=== PATIENT | male | born 1965 ===

== ENCOUNTER 2018-06-29 06:58 | Inpatient (IN) ==
--- NOTE | 2018-06-29 07:37 | Anesthesia Evaluation PreOp ---
Date of Encounter: 06/29/18 Time of Encounter: 07:35 - Past History Planned Operation: LEFT TSA Cardiac History: Hyperlipidemia, Other (NORMAL EF) Pulmonary History: Former smoker (QUIT 2 MONTHS AGO), COPD (MILD) ENVIRONMENTAL FIELD PROFESSIONAL History: Other (FIBROMYALGIA) Other Medical History: Other (OBESITY, BMI 32) Anesthesia History: No Prior Anesthetic Complications, Past Anesthesia Alcohol Use: none Drug use: none Medications and Allergies Albuterol Sulfate [Proair Hfa] 1 puff IH Q4H 10/01/15 [History] BuPROPion SR (12 HR) [Wellbutrin SR] 150 mg PO BID 10/01/15 [History] Citalopram Hydrobromide [Celexa] 40 mg PO DAILY 10/01/15 [History] Diclofenac Sodium [Voltaren] 75 mg PO DAILY 10/01/15 [History] Divalproex (12 HR) [Depakote (12 HR)] 500 mg PO BID 10/01/15 [History] Gabapentin [Neurontin] 600 mg PO TID 10/01/15 [History] Gemfibrozil [Lopid] 600 mg PO BID 10/01/15 [History] OxyCODONE/APAP 5/325 [Percocet 5/325 MG] 1 each PO Q4H PRN #15 tablet 10/01/15 [Rx] Sildenafil Citrate [Viagra] 100 mg PO DAILY 10/01/15 [History] Tamsulosin [Flomax] 0.4 mg PO DAILY 10/01/15 [History] Tizanidine HCl [Zanaflex] 4 mg PO DAILY 10/01/15 [History] Varenicline tartrate [Chantix Continuing Month Pack] 1 mg PO BID 10/01/15 [History] clonazePAM [Klonopin] 0.5 mg PO BID 10/01/15 [History] Ibuprofen [Motrin] 600 mg PO Q6HR PRN #20 tab 11/02/15 [Rx] Allergy/AdvReac Type Severity Reaction Status Date / Time acetaminophen [From Vicodin] AdvReac Nausea Unverified 09/19/15 08:39 hydrocodone [From Vicodin] AdvReac Nausea Unverified 09/19/15 08:39 tramadol AdvReac Nausea Unverified 09/19/15 08:39 - Meds/Allergy Pre-op Review Medications Reviewed: Yes Allergies Reviewed: Yes Beta Blockers on Current Med List: No Anesthesia Exam O2 Sat Height 1.8 m Weight 103.419 kg O2 Sat by Pulse Oximetry 94 Vital Signs Temp Pulse Resp BP Pulse Ox 97.9 F 68 18 127/87 94 06/29/18 07:17 06/29/18 07:17 06/29/18 07:17 06/29/18 07:17 06/29/18 07:17 NPO (# of Hours): 8 - HEENT Mallampati: IV Teeth: Normal Oral Opening: Greater than 3 - Cardiac Rhythm: Regular - Pulmonary Breath Sounds: bilateral Clear Respiratory Effort: Symmetrical Anesthesia Assess/Plan ASA Score: 3 Anesthetic Plan: General, Regional Nerve Block Monitoring Plan: Standard Monitors Recovery Plan: PACU
[2018-06-29] MEDS ORDERED: *HR* OxyCODONE Immed Rel 5 MG TABLET PO PRN ×3 (07:40→11:53)
[2018-06-29] MEDS ORDERED: Albuterol 2.5 MG/3 ML NEBULIZER IH ONE (07:41)
[2018-06-29] MEDS ORDERED: Ondansetron 4 MG/2 ML VIAL IVP ONE (07:41)
[2018-06-29] MEDS ORDERED: *HR* Labetalol 20 MG/4 ML SYRINGE IVP PRN (07:41)
[2018-06-29] MEDS ORDERED: Ketorolac 30 MG/ML VIAL IVP ONE (07:41)
[2018-06-29] MEDS ORDERED: *HR* Promethazine 25 MG/ML VIAL IVP PRN (07:41)
[2018-06-29] MEDS ORDERED: *HR* Meperidine 25 MG/ML SYRINGE IVP PRN (07:41)
[2018-06-29] MEDS ORDERED: Ringers Solution, Lactated 1,000 ML IVC SCH ×2 (07:45→11:53)
--- NOTE | 2018-06-29 07:53 | History & Physical Report ---
Date of Encounter: 06/29/18 Time of Encounter: 07:53 24 Hour HP Update - Instructions Instructions: If the History and Physical is less than 30 days old and was completed prior to A.M. admission and or procedure and has NOT been updated on calendar day of procedure please complete this update prior to performing procedure. - Update Patient reports changes in Medical Condition: No Changes in examination, assessment, or condition: No Changes in Medication: No Preop tests/diagnostics Reviewed: Yes Surgery Remains Indicated: Yes Consent for Planned Operative Procedure(s) Verified: Yes - Pre-Operative Checklist Preoperative Checklist Indicated: No Prophylactic Antibiotic Ordered: Yes Is VTE Prophylaxis Indicated?: Yes
[2018-06-29] MEDS ORDERED: Lidocaine -MPF 1% 5 ML AMPUL ONE (07:54)
[2018-06-29] MEDS ORDERED: *HR* FentaNYL (PF) 100 MCG/2 ML VIAL ONE (08:02)
[2018-06-29] MEDS ORDERED: *HR* Succinylcholine 200 MG/10 ML VIAL IVP ONE (08:02)
[2018-06-29] MEDS ORDERED: Ondansetron 4 MG/2 ML VIAL ONE (08:02)
[2018-06-29] MEDS ORDERED: Dexamethasone 4 MG/ML VIAL ONE (08:02)
[2018-06-29] MEDS ORDERED: Lidocaine -MPF 2% 2 ML VIAL ONE (08:02)
[2018-06-29] MEDS ORDERED: *HR* Midazolam HCl 2 MG/2 ML VIAL ONE (08:03)
[2018-06-29] MEDS ORDERED: *HR* Propofol 200 MG/20 ML VIAL IVP ONE (08:03)
[2018-06-29] MEDS ORDERED: CeFAZolin Syr 2,000MG/20 ML 2,000 MG/20 ML SYRINGE IVPB ONE (08:06)
[2018-06-29] MEDS ORDERED: ROPIVACAINE HCL/PF 0.5% 30 ML VIAL ONE (08:25)
[2018-06-29] MEDS ORDERED: Bupivacaine-MPF 0.25% 10 ML VIAL ONE (08:25)
[2018-06-29] MEDS ORDERED: Ethanol\\Acetic Acid\\Na Ace\\Ben 1,000 ML IRRIG.SOLN IR ONE (08:26)
--- NOTE | 2018-06-29 08:33 | Discharge Summary ---
Orders not resulted at time of discharge: Pending orders 06/29/18 00:01 XR shoulder complete LT [XR] Routine H/H [Hemoglobin and Hematocrit] [HEME] Routine Date of Encounter: 06/29/18 Time of Encounter: 14:20 - Discharge Diagnosis (1) Status post reverse total arthroplasty of left shoulder Priority: Primary Status: Acute Comments: Opsite dressing, leave intact until first post-operative visit. Zipline/Sterling in place, plan to remove at post-operative day #14-16. If dressing becomes >50% saturated, contact office, remove dressing and place appropriate dressing in its place. Do not allow for dressing to get wet. Shoulder Precautions x 6 weeks. Apply cold therapy wrap 3-6x/day for 20 minutes at a time. Encourage ambulation throughout the day. Use Incentive spirometer 10x/hour. Elevate affected extremity above heart as tolerated. NWB to affected upper extremity x 6 weeks. Will remove brace at first post-operative appointment. OK to remove during PT/OT and Home exercises. Remove pillow to brace on post-operative day #1. (2) Rotator cuff arthropathy of left shoulder Priority: Primary Status: Acute (3) HTN (hypertension) Priority: Secondary Status: Chronic Qualifiers: Hypertension type: essential hypertension Qualified Code(s): I10 - Essential (primary) hypertension (4) COPD (chronic obstructive pulmonary disease) Priority: Secondary Status: Chronic Qualifiers: COPD type: unspecified COPD Qualified Code(s): J44.9 - Chronic obstructive pulmonary disease, unspecified (5) Tobacco use Priority: Secondary Status: Chronic (6) Obesity Priority: Secondary Status: Chronic Qualifiers: Obesity type: due to excess calories Obesity classification: adult class 1 (BMI 30 - 34.9) Serious obesity comorbidity presence: without serious comorbidity Body mass index: BMI 30.0-30.9 Qualified Code(s): E66.09 - Other obesity due to excess calories; Z68.30 - Body mass index (BMI) 30.0-30.9, adult - Hospital Course Hospital course: Mr. Marie is a 53 year old male s/p Right TSR-r 06/29/18, uneventful postoperative course. Stable for discharge. Patient seen at bedside by this AM, without complaints. A&O x 3 Afebrile, vital signs stable. Vital Signs Temp Pulse Resp BP Pulse Ox 06/29/18 11:03 80 16 126/88 92 06/29/18 10:53 98.0 F 80 16 141/98 92 06/29/18 10:43 71 16 143/97 92 06/29/18 10:33 80 16 137/98 92 06/29/18 10:23 98.3 F 75 15 108/73 88 06/29/18 09:10 77 18 124/90 95 06/29/18 08:54 77 18 135/85 91 06/29/18 07:17 97.9 F 68 18 127/87 94 Intake and Output 06/28/18 06/29/18 06/29/18 23:59 07:59 15:59 Output Total 50 / 50 Balance -50 / -50 Output: Estimated Blood Loss 50 / 50 Other: Weight 103.419 kg Patient Weight 06/29/18 23:59 Weight 103.419 kg Labs reviewed. H/H - stable, asymptomatic Short CBC 06/29/18 Range/Units 10:44 Hgb 15.8 (12.9-16.9) g/dL Hct 46.4 (37.5-50.1) % Pain control: adequate Participating in PT. All questions and concerns addressed. Educated on use of incentive spirometer. Encouraged ambulation and proper hydration. Patient educated on post-operative restrictions and post-operative care. Assessment and plan: Continue with postoperative care Discharge plan: Home with OP, discharge today. - Time Spent with Patient Total time spent providing and/or coordinating discharge services: - Discharge Medications Home Medications: BuPROPion SR (12 HR) [Wellbutrin SR] 150 mg PO BID 10/01/15 [History] Citalopram Hydrobromide [Celexa] 40 mg PO DAILY 10/01/15 [History] Divalproex (12 HR) [Depakote (12 HR)] 500 mg PO BID 10/01/15 [History] Gabapentin [Neurontin] 600 mg PO TID 10/01/15 [History] Diclofenac Sodium [Voltaren] 75 mg PO DAILY 06/29/18 [History] Docusate [Colace] 100 mg PO BID 10 Days #20 capsule 06/29/18 [Rx] Loratadine [Allergy Relief] 10 mg PO DAILY 06/29/18 [History] Omeprazole [PriLOSEC] 20 mg PO DAILY 06/29/18 [History] OxyCODONE Immed Rel [Roxicodone 5 MG] 5 mg PO Q6HR PRN 7 Days #28 tablet 06/29/18 [Rx] Oxybutynin Chloride [Ditropan Xl] 10 mg PO DAILY 06/29/18 [History] Simvastatin [Zocor] 20 mg PO QPM 06/29/18 [History] Tamsulosin [Flomax] 0.4 mg PO DAILY 06/29/18 [History] Tizanidine HCl 4 mg PO HS PRN 06/29/18 [History] hydrOXYzine pamoate [HydrOXYzine Pamoate] 50 mg PO HS PRN 06/29/18 [History] Allergies/Adverse Reactions: Allergy/AdvReac Type Severity Reaction Status Date / Time acetaminophen [From Vicodin] AdvReac Nausea Verified 06/29/18 07:48 hydrocodone [From Vicodin] AdvReac Nausea Verified 06/29/18 07:48 tramadol AdvReac Nausea Verified 06/29/18 07:48 Date of admission: 06/29 Primary care physician: Trudi Yuan, Anticipated date of discharge: 06/29/18 - Patient Status Disposition: Home, Self-Care Condition: Good Functional capacity at discharge: independent ambulation Overall status at discharge: patient is progressing back to baseline - Discharge Instructions Follow Up With: Trudi Yuan, ANGELINA [Primary Care Provider] -
[2018-06-29] MEDS ORDERED: Tranexamic Acid 1,000 MG/10 ML VIAL ONE (09:22)
--- NOTE | 2018-06-29 10:13 | Orthopedic Operative Note ---
Date of procedure: 06/29/18 Pre-op diagnosis: Left shoulder arthritis rotator cuff tear Post-op diagnosis: same Procedure: Procedure: Total Shoulder Replacment Reverse, left Estimated blood loss: 100 cc Hardware: Metal and polyethylene replacement: Arthrex 28, +2 , 30 mm screw gl enoid baseplate, 4 locking 5.5 screw, 42+4 glenosphere, 10 apex. humeral stem, poly insert 3 Exam Under anesthesia: Full motion no instability Procedural Notes: Grade 4 arthritic changes humeral head glenoid socket, rotator cuff tear Operative procedure: The patient was brought to the operating room and placed on the operating room table. After general anesthesia was administered the operative shoulder was examined. Findings were noted. The patient was placed in the modified beachchair position. All pressure points were padded appropriately. And the head was stabilized in the neutral position. The operative extremity was prepped and draped in the sterile surgical fashion. The patient received IV antibiotics prior to skin incision. A standard deltopectoral approach was made to the operative shoulder. Incision was made to the skin and subcutaneous tissue,hemo stasis was obtained with Bovie cautery. Using careful blunt dissection the cephalic vein was identified and mobilized medially. The deltopectoral interval was developed and the clavipectoral fascia was incised. The subscap was released off the lesser tuberosity and tagged with #2 FiberWire suture subscap was irreparable.. The humerus was dislocated patient noted to have irreparable tear supraspinatus tendon, and the humeral cut was made along the anatomic neck. Anterior and posterior Bankart retractors were placed to expose the glenoid. The glenoid guide was seated and the centering hole was made. It was reamed with the appropriate reamer. The 28, +2, 30 mm screw. Baseplate was seated and secured with 4 locking 5.5 screw. The baseplate was irrigated and dried and the order 2+4 Glenosphere was seated and secured with the Chacon taper. The Chacon taper was tested and found to be secure, glenosphere fixation was secondarily secured with the central screw. The humerus was redislocated and prepared with the diaphyseal reamers, followed by a broaching process up to the appropriate size 10 apex. in the patient's anatomic version. The metaphyseal reamer was then utilized. Trial reduction found the shoulder to be relocatable. Trial components were removed and the 10 apex. stem was impacted in place in the patient's anatomic version. Trial reduction found the shoulder to be relocatable and stable with the appropriate 3 Trial component was removed and the real implant was seated and secured the shoulder was reduced. The shoulder had excellent motion and excellent stability and no evidence of dislocation. The deep tissue was irrigated with pulse irrigation. The PA close the shoulder. The deltopectoral interval was closed with a running #1 PDS suture, subcutaneous tissue was irrigated and closed with 0 PDS suture, the skin was closed with Dermabond. The patient was placed in a sterile dressing, abduction brace and extubated. The patient was then transferred to the recovery room in stable condition. Anesthesia: GETA Surgeon: Kel Freedman Was there an assistant teaching professor present: No Estimated blood loss (cc): 50 Condition: stable Disposition: PACU
--- NOTE | 2018-06-29 10:52 | Anesthesia Evaluation Post Op ---
Date of Encounter: 06/29/18 Time of Encounter: 10:52 - Vital Signs Vital Signs: Vital Signs/O2 Sat/Glucose, Most Recent Temp Pulse Resp BP Pulse Ox 98.3 F 71 16 143/97 92 06/29/18 10:23 06/29/18 10:43 06/29/18 10:43 06/29/18 10:43 06/29/18 10:43 - Lungs Lungs: Clear Ascult./Percussion - Airway Airway: Non-obstructed - Cardiovascular Regular Rate - Mental Status Mental Status: Alert & Oriented, Answers Appropriately - Pain Pain Scale: 0 - Nausea Vomiting Nausea Vomiting: Not Present - Hydration Hydration: Tolerates oral liquids - Discharge PostOp Status: Transfer Patient to floor
[2018-06-29 11:04] LABS: Hematocrit 46.4 % (37.5-50.1); Hemoglobin 15.8 g/dL (12.9-16.9)
[2018-06-29] MEDS ORDERED: Sennosides 8.6 MG TABLET PO PRN (11:53)
[2018-06-29] MEDS ORDERED: Ibuprofen 600 MG TABLET PO PRN (11:53)
[2018-06-29] MEDS ORDERED: *HR* OxyCODONE/APAP 5/325 TABLET PO PRN (11:53)
[2018-06-29] MEDS ORDERED: Temazepam 15 MG CAPSULE PO PRN (11:53)
[2018-06-29] MEDS ORDERED: Naloxone 0.4 MG/ML INJ IVP PRN (11:53)
[2018-06-29] MEDS ORDERED: MOM Conc 10 ML UD.LIQ PO PRN (11:53)
[2018-06-29] MEDS ORDERED: Ondansetron 4 MG/2 ML VIAL IVP PRN (11:53)
--- NOTE | 2018-06-29 12:08 | Anesthesia Procedures ---
Date of Encounter: 06/29/18 Time of Encounter: 08:45 Procedures: Anesthesia - Nerve Block Procedure Date: 06/29/18 Time: 08:45 Allergies/Adv Reactions: VICODIN, TRAMADOL Pre-op Diagnosis: LEFT SHOULDER REPLACEMENT- REVERSE BALL AND SOCKET Surgical Procedure: LEFT SHOULDER ARTHRITIS Checklist: Correct Patient Identifier, Correct procedure, History checked Correct side: Left Blood Thinner: No Monitor Applied: EKG, BP, Pulse Oximetry Supplemental Oxygen via Nasal Cannula (L/min): 2 Sedation: Versed (mg): 2 Sedation: Fentanyl (mcg): 100 Indication: Post Op Analgesia Pre-op Neuro Deficits: No Block Type: Supraclavicular (ICB/SCP) Catheter placed: No Sterile Technique: Yes Ultrasound used: Yes Anatomy identified: Yes Visual spread of Local: Yes Neuro Stimulation: Yes Nerve Stimulator Range: 0.2 - 0.4 mA Blood on Needle Aspiration: No Smooth Injection of Local: Yes Pain with Injection of Local: No Prep: Chlorhexadine Needle: 22 x 50 mm Stimuplex Local: Ropivacaine (0.5% ROPI WITH 8MG DECADRON -SC), Other (BUPIVICAINE 0.25%10CC-ICB/SCP) Volume (cc): 40 Number of Attempts: 1 Complications: None/effective block Vitals: Vital Signs - Last 8 Hours Temp Pulse Resp BP Pulse Ox 06/29/18 11:03 80 16 126/88 92 06/29/18 10:53 98.0 F 80 16 141/98 92 06/29/18 10:43 71 16 143/97 92 06/29/18 10:33 80 16 137/98 92 06/29/18 10:23 98.3 F 75 15 108/73 88 06/29/18 09:10 77 18 124/90 95 06/29/18 08:54 77 18 135/85 91 06/29/18 07:17 97.9 F 68 18 127/87 94 Intake and Output 06/28/18 06/29/18 06/29/18 23:59 07:59 15:59 Output Total 50 / 50 Balance -50 / -50 Output: Estimated Blood Loss 50 / 50 Other: Weight 103.419 kg Patient Weight 06/29/18 23:59 Weight 103.419 kg
[2018-06-29] MEDS ORDERED: *HR* Enoxaparin 30 MG/0.3 ML SYRINGE SQ ONE (12:30)
[2018-06-29 16:01] VITALS: BP 115/84
[2018-06-29] MEDS ORDERED: *HR* Enoxaparin 30 MG/0.3 ML SYRINGE SQ SCH ×2 (18:00)
== END 2018-06-29 15:45 | disposition home or self-care (01) | DRG 483 ==
LOC: SAMDAY 06:58 → 3NENU 11:29
PROVIDERS: ADMIT Orthopaedic Surgery; ATTEND Orthopaedic Surgery

== ENCOUNTER 2021-08-25 13:05 | Inpatient (IN) ==
[~2021-08-25 13:05] MED LIST: Gabapentin 300 MG CAPSULE PO SCH
[2021-08-25] MEDS ORDERED: Acetaminophen IV 1,000 MG/100 ML BAG IVPB ONE (13:44)
[2021-08-25] MEDS ORDERED: Celecoxib 100 MG CAPSULE PO ONE (13:44)
[2021-08-25] MEDS ORDERED: *HR* FentaNYL (PF) 100 MCG/2 ML VIAL IVP PRN (13:46)
[2021-08-25] MEDS ORDERED: cefOXitin 2,000 MG in 0.9 % Sodium Chloride 20 ML IVP ONE (13:55)
[2021-08-25] MEDS ORDERED: Gabapentin 300 MG CAPSULE PO ONE (14:00)
[2021-08-25] MEDS ORDERED: Ringers Solution, Lactated 1,000 ML IVC SCH (14:00)
[2021-08-25] MEDS ORDERED: CeFAZolin Syr 2,000MG/20 ML 2,000 MG/20 ML SYRINGE IVPB ONE (14:05)
[2021-08-25] MEDS ORDERED: MetroNIDAZOLE 500 MG/100 ML 500 MG/100 ML BAG IVPB ONE (14:06)
[2021-08-25] MEDS ORDERED: Ondansetron 4 MG/2 ML VIAL ONE (14:15)
[2021-08-25] MEDS ORDERED: *HR* Rocuronium Bromide 50 MG/5 ML VIAL ONE ×2 (14:15→17:01)
[2021-08-25] MEDS ORDERED: *HR* Succinylcholine 200 MG/10 ML VIAL IVP ONE (14:15)
[2021-08-25] MEDS ORDERED: Lidocaine HCL 4 ML Topical Solution (Laryng-O-Jet Kit Sterile Pak) TP ONE (14:15)
[2021-08-25] MEDS ORDERED: *HR* Midazolam HCl 2 MG/2 ML VIAL ONE (14:15)
[2021-08-25] MEDS ORDERED: *HR* Propofol 200 MG/20 ML VIAL IVP ONE (14:15)
[2021-08-25] MEDS ORDERED: Lidocaine -MPF 2% 2 ML VIAL ONE (14:15)
[2021-08-25] MEDS ORDERED: *HR* FentaNYL (PF) 100 MCG/2 ML VIAL ONE (14:15)
[2021-08-25] MEDS ORDERED: cefOXitin 1,000 MG, Sodium Chloride IRRigation 1,000 ML IR ONE (15:00)
[2021-08-25] MEDS ORDERED: Dexmedetomidine HCl 400 MCG/100 ML MLS IVC ONE (15:10)
[2021-08-25] MEDS ORDERED: CefOXitin 1,000 MG VIAL ONE (16:40)
[2021-08-25] MEDS ORDERED: *HR* HYDROMORPHONE 2 MG/ML VIAL ONE (17:03)
[2021-08-25] MEDS ORDERED: Sugammadex Sodium 200 MG/2 ML VIAL IV ONE (17:22)
[2021-08-25] MEDS ORDERED: Ipratropium/Albuterol Neb 3 ML ONE (18:08)
[2021-08-25] MEDS ORDERED: Loratadine 10 MG TABLET PO PRN (20:24)
[2021-08-25] MEDS ORDERED: Naloxone 0.4 MG/ML INJ IVP PRN (20:24)
[2021-08-25] MEDS ORDERED: Albuterol 2.5 MG/3 ML NEBULIZER IH PRN (20:24)
[2021-08-25] MEDS ORDERED: *HR* OxyCODONE Immed Rel 5 MG TABLET PO PRN (20:24)
[2021-08-25] MEDS ORDERED: Gabapentin 300 MG CAPSULE PO SCH (21:00)
[2021-08-25] MEDS: Divalproex (24 HR) 500 MG TABLET PO SCH (22:21)
[2021-08-25] MEDS: 0.9 % Sodium Chloride 1,000 ML IVC SCH (22:21)
[2021-08-25] MEDS: Gabapentin 300 MG CAPSULE PO SCH (22:21)
[2021-08-26] MEDS: *HR* OxyCODONE Immed Rel 5 MG TABLET PO PRN ×3 (01:06→21:18)
[2021-08-26] MEDS: Ibuprofen 800 MG TABLET PO SCH ×2 (02:46→10:08)
[2021-08-26 03:17] LABS: BUN/Creatinine Ratio 20 (6-26); Blood Urea Nitrogen 21 mg/dL (6-20); Calcium 8.9 mg/dL (8.6-10.3); Carbon Dioxide 27 mEq/L (23-29); Chloride 101 mEq/L (98-107); Glucose 125 mg/dL (70-105); Magnesium 1.9 mg/dL (1.6-2.6); Osmolality,Calculated 284 (280-300); Phosphorous 5.1 mg/dL (2.7-4.5); Potassium 4.9 mEq/L (3.5-5.1); Sodium 135 mEq/L (136-145); eGFR For African Americans > 60 (> 60); eGFR For Non-African Americans > 60 (> 60)
[2021-08-26] MEDS ORDERED: *HR* FentaNYL (PF) 100 MCG/2 ML VIAL IVP ONE (04:02)
[2021-08-26] MEDS: 0.9 % Sodium Chloride 1,000 ML IVC SCH (05:13)
[2021-08-26] MEDS ORDERED: Ketorolac 30 MG/ML VIAL IVP ONE (08:13)
[2021-08-26] MEDS ORDERED: Orphenadrine 60 MG/2 ML VIAL IVP PRN (08:14)
[2021-08-26] MEDS ORDERED: *HR* HYDROmorphone (PF) 1 MG/ML SYRINGE IVP ONE ×2 (08:25→12:48)
[2021-08-26] MEDS ORDERED: *HR* HYDROmorphone PCA *PREMADE* 20 MG/1MG/ML (20mL) PCA VIAL IVC PRN (08:32)
[2021-08-26] MEDS: Gabapentin 300 MG CAPSULE PO SCH ×3 (08:33→21:01)
[2021-08-26] MEDS ORDERED: Ezetimibe [Zetia] 10 MG Tablet PO SCH (09:00)
[2021-08-26] MEDS ORDERED: BuPROPion XL (24 HR) 150 MG TABLET PO SCH (09:00)
[2021-08-26] MEDS: Divalproex (24 HR) 500 MG TABLET PO SCH ×2 (10:08→20:59)
[2021-08-26] MEDS: Acetylcysteine 10% 2 ML INHSOL IH SCH ×5 (11:12→23:33)
[2021-08-26] MEDS: Ipratropium/Albuterol Neb 3 ML IH SCH ×5 (11:13→23:33)
[2021-08-26] MEDS: Acetaminophen IV 1,000 MG/100 ML BAG IVPB SCH ×2 (12:27→16:49)
[2021-08-26] MEDS: D5% in 0.45% NACL w KCl 20 MEQ/1,000 ML MLS IVC SCH ×2 (12:28→21:02)
[2021-08-26] MEDS: Ketorolac 30 MG/ML VIAL IVP SCH ×2 (16:50→21:17)
[2021-08-26] MEDS ORDERED: Ketorolac 30 MG/ML VIAL IVP SCH (18:00)
[2021-08-26] MEDS: Orphenadrine 60 MG/2 ML VIAL IVP SCH (21:20)
[2021-08-26] MEDS: Ezetimibe [Zetia] 10 MG Tablet PO SCH (21:20)
[2021-08-26] MEDS: BuPROPion XL (24 HR) 150 MG TABLET PO SCH (21:21)
[2021-08-27] MEDS: *HR* OxyCODONE Immed Rel 5 MG TABLET PO PRN ×3 (01:32→20:42)
[2021-08-27] MEDS: Ketorolac 30 MG/ML VIAL IVP SCH ×5 (01:33→23:40)
[2021-08-27] MEDS: Acetylcysteine 10% 2 ML INHSOL IH SCH ×6 (03:43→23:39)
[2021-08-27] MEDS: Ipratropium/Albuterol Neb 3 ML IH SCH ×6 (03:43→23:39)
[2021-08-27] MEDS: *HR* Enoxaparin 40 MG/0.4 ML SYRINGE SQ SCH (05:33)
[2021-08-27] MEDS: Orphenadrine 60 MG/2 ML VIAL IVP SCH ×2 (05:35→17:43)
[2021-08-27] MEDS: Acetaminophen IV 1,000 MG/100 ML BAG IVPB SCH ×5 (05:35→23:47)
[2021-08-27] MEDS: D5% in 0.45% NACL w KCl 20 MEQ/1,000 ML MLS IVC SCH ×3 (05:36→23:54)
[2021-08-27 06:25] LABS: BUN/Creatinine Ratio 15 (6-26); Blood Urea Nitrogen 17 mg/dL (6-20); Calcium 8.8 mg/dL (8.6-10.3); Carbon Dioxide 29 mEq/L (23-29); Chloride 100 mEq/L (98-107); Glucose 93 mg/dL (70-105); Magnesium 1.8 mg/dL (1.6-2.6); Osmolality,Calculated 287 (280-300); Phosphorous 3.5 mg/dL (2.7-4.5); Potassium 3.8 mEq/L (3.5-5.1); Sodium 138 mEq/L (136-145); eGFR For African Americans > 60 (> 60); eGFR For Non-African Americans > 60 (> 60)
[2021-08-27] MEDS: Gabapentin 300 MG CAPSULE PO SCH ×3 (08:57→20:43)
[2021-08-27] MEDS: BuPROPion XL (24 HR) 150 MG TABLET PO SCH (20:42)
[2021-08-27] MEDS: Divalproex (24 HR) 500 MG TABLET PO SCH (20:43)
[2021-08-27] MEDS: Ezetimibe [Zetia] 10 MG Tablet PO SCH (20:46)
[2021-08-28] MEDS: *HR* OxyCODONE Immed Rel 5 MG TABLET PO PRN ×3 (00:52→19:00)
[2021-08-28] MEDS: Ipratropium/Albuterol Neb 3 ML IH SCH (03:56)
[2021-08-28] MEDS: Acetylcysteine 10% 2 ML INHSOL IH SCH (03:56)
[2021-08-28] MEDS: Ketorolac 30 MG/ML VIAL IVP SCH ×2 (05:19→13:28)
[2021-08-28] MEDS: Orphenadrine 60 MG/2 ML VIAL IVP SCH ×2 (05:20→18:32)
[2021-08-28] MEDS: Acetaminophen IV 1,000 MG/100 ML BAG IVPB SCH ×4 (05:39→23:56)
[2021-08-28] MEDS: *HR* Enoxaparin 40 MG/0.4 ML SYRINGE SQ SCH (06:10)
[2021-08-28] MEDS: (Terbinafine Hcl [Terbinafine Hcl] 250 MG Tablet) PO SCH (09:02)
[2021-08-28] MEDS: Gabapentin 300 MG CAPSULE PO SCH ×3 (09:02→20:33)
[2021-08-28] MEDS: D5% in 0.45% NACL w KCl 20 MEQ/1,000 ML MLS IVC SCH (13:35)
[2021-08-28] MEDS: clonazePAM 0.5 MG TABLET PO PRN (20:33)
[2021-08-28] MEDS: BuPROPion XL (24 HR) 150 MG TABLET PO SCH (20:33)
[2021-08-28] MEDS: Ezetimibe [Zetia] 10 MG Tablet PO SCH (20:35)
[2021-08-28] MEDS: Divalproex (24 HR) 500 MG TABLET PO SCH (20:37)
[2021-08-29] MEDS: *HR* OxyCODONE Immed Rel 5 MG TABLET PO PRN ×2 (02:44→21:15)
[2021-08-29] MEDS: Orphenadrine 60 MG/2 ML VIAL IVP SCH ×2 (05:29→17:49)
[2021-08-29] MEDS: *HR* Enoxaparin 40 MG/0.4 ML SYRINGE SQ SCH (05:30)
[2021-08-29] MEDS: D5% in 0.45% NACL w KCl 20 MEQ/1,000 ML MLS IVC SCH ×2 (05:32→21:14)
[2021-08-29] MEDS: (Terbinafine Hcl [Terbinafine Hcl] 250 MG Tablet) PO SCH (08:20)
[2021-08-29] MEDS: Acetaminophen IV 1,000 MG/100 ML BAG IVPB SCH ×3 (08:20→17:46)
[2021-08-29] MEDS: Gabapentin 300 MG CAPSULE PO SCH ×3 (08:20→21:15)
[2021-08-29] MEDS ORDERED: *HR* Promethazine 25 MG/ML VIAL IM PRN (08:28)
[2021-08-29] MEDS ORDERED: Scopolamine Patch 1.5 MG PATCH.TD72 TD ONE (08:44)
[2021-08-29 10:01] LABS: Basophils # 0.1 K/mcL (0.0-0.2); Basophils % 0.8 %; Eosinophils # 0.7 K/mcL (0.0-0.6); Eosinophils % 4.5 %; Hematocrit 47.9 % (37.5-50.1); Hemoglobin 15.9 g/dL (12.9-16.9); Immature Granulocytes % 1.8 % (0-4); Lymphocytes # 1.4 K/mcL (0.6-4.6); Lymphocytes % 9.4 %; Mean Corpuscular HGB Conc 33.2 g/dL (31.6-35.5); Mean Corpuscular Hemoglobin 31.1 pg (28.0-33.3); Mean Corpuscular Volume 93.7 fL (83.0-100.0); Mean Platelet Volume 9.9 fL (9.4-12.4); Monocytes # 1.8 K/mcL (0.0-1.3); Monocytes % 11.6 %; Platelet Count 321 K/mcL (140-400); Red Blood Count 5.11 M/mcL (4.19-5.50); Red Cell Distribution Width 13.9 % (11.5-14.5); Segmented Neutrophils % 71.9 %; White Blood Count 15.3 K/mcL (4.3-11.1)
[2021-08-29] MEDS: Pantoprazole 40 MG VIAL IVP SCH ×2 (10:56→17:49)
[2021-08-29] MEDS: Metoclopramide 20 MG in 0.9 % Sodium Chloride 50 ML IVPB SCH ×2 (10:56→17:44)
[2021-08-29] MEDS: Piperacillin/Tazobactam 3.375 GM in 0.9 % Sodium Chloride Mini Bag 100 ML IVPB SCH ×2 (13:05→15:46)
[2021-08-29] MEDS: Divalproex (24 HR) 500 MG TABLET PO SCH (21:15)
[2021-08-29] MEDS: BuPROPion XL (24 HR) 150 MG TABLET PO SCH (21:16)
[2021-08-30] MEDS: Ezetimibe [Zetia] 10 MG Tablet PO SCH (00:05)
[2021-08-30] MEDS: Piperacillin/Tazobactam 3.375 GM in 0.9 % Sodium Chloride Mini Bag 100 ML IVPB SCH ×4 (00:36→23:15)
[2021-08-30] MEDS: Acetaminophen IV 1,000 MG/100 ML BAG IVPB SCH ×5 (00:38→23:15)
[2021-08-30] MEDS: Metoclopramide 20 MG in 0.9 % Sodium Chloride 50 ML IVPB SCH ×2 (01:14→09:06)
[2021-08-30] MEDS: Orphenadrine 60 MG/2 ML VIAL IVP SCH ×2 (05:22→17:54)
[2021-08-30] MEDS: *HR* Enoxaparin 40 MG/0.4 ML SYRINGE SQ SCH (05:23)
[2021-08-30] MEDS: Pantoprazole 40 MG VIAL IVP SCH ×2 (05:23→17:54)
[2021-08-30] MEDS: D5% in 0.45% NACL w KCl 20 MEQ/1,000 ML MLS IVC SCH ×2 (09:03→22:04)
[2021-08-30] MEDS: Gabapentin 300 MG CAPSULE PO SCH ×2 (09:11→17:53)
[2021-08-30] MEDS: (Terbinafine Hcl [Terbinafine Hcl] 250 MG Tablet) PO SCH (09:12)
[2021-08-30] MEDS ORDERED: *HR* HYDROmorphone (PF) 1 MG/ML SYRINGE IVP ONE (11:20)
[2021-08-30] MEDS ORDERED: *HR* Midazolam HCl 2 MG/2 ML VIAL ONE (12:28)
[2021-08-30] MEDS ORDERED: *HR* Propofol 200 MG/20 ML VIAL IVP ONE (12:28)
[2021-08-30] MEDS ORDERED: *HR* FentaNYL (PF) 100 MCG/2 ML VIAL ONE (12:28)
[2021-08-30] MEDS ORDERED: *HR* Rocuronium Bromide 50 MG/5 ML VIAL ONE ×2 (12:29→15:24)
[2021-08-30] MEDS ORDERED: Lidocaine -MPF 2% 2 ML VIAL ONE (12:29)
[2021-08-30] MEDS ORDERED: Ondansetron 4 MG/2 ML VIAL ONE (12:29)
[2021-08-30] MEDS ORDERED: *HR* Succinylcholine 200 MG/10 ML VIAL IVP ONE (12:29)
[2021-08-30] MEDS ORDERED: cefOXitin 2,000 MG in 0.9 % Sodium Chloride 20 ML IVP ONE (13:07)
[2021-08-30] MEDS ORDERED: 0.9 % Sodium Chloride 1,000 ML IVC SCH (13:15)
[2021-08-30] MEDS ORDERED: CefOXitin 2,000 MG VIAL ONE (15:03)
[2021-08-30] MEDS ORDERED: *HR* HYDROMORPHONE 2 MG/ML VIAL ONE (15:18)
[2021-08-30] MEDS ORDERED: *HR* Labetalol 20 MG/4 ML SYRINGE IVP ONE (15:23)
[2021-08-30] MEDS ORDERED: Sugammadex Sodium 200 MG/2 ML VIAL IV ONE (16:10)
[2021-08-30] MEDS ORDERED: Ipratropium/Albuterol Neb 3 ML ONE ×2 (17:16→17:23)
[2021-08-30] MEDS ORDERED: *HR* HYDROmorphone (PF) 1 MG/ML SYRINGE ONE (17:34)
[2021-08-30] MEDS ORDERED: CloNIDine Patch 0.1 MG PATCH (WEEKLY) ONE (17:38)
[2021-08-30] MEDS ORDERED: *HR* HYDROmorphone 2 MG/ML SYRINGE IVP PRN (17:39)
[2021-08-30] MEDS ORDERED: Promethazine 6.25 MG in Water for inj. (sterile) 20 ML IVPB PRN (17:45)
[2021-08-30] MEDS ORDERED: *HR* HYDROmorphone PF 0.5 MG/0.5 ML SYRINGE IVP PRN (17:48)
[2021-08-30] MEDS ORDERED: *HR* HYDROmorphone (PF) 1 MG/ML SYRINGE IVP PRN (17:50)
[2021-08-30] MEDS ORDERED: *HR* HYDROmorphone 4 MG TABLET PO PRN (18:00)
[2021-08-30] MEDS ORDERED: Lacri-Lube 3.5 GM TUBE ONE (18:03)
[2021-08-30] MEDS: *HR* HYDROmorphone (PF) 1 MG/ML SYRINGE IVP PRN ×3 (18:12→19:10)
[2021-08-30] MEDS ORDERED: Albuterol 2.5 MG/3 ML NEBULIZER IH PRN (20:32)
[2021-08-30] MEDS ORDERED: Naloxone 0.4 MG/ML INJ IVP PRN (20:32)
[2021-08-30] MEDS ORDERED: *HR* Promethazine 25 MG/ML VIAL IM PRN (20:32)
[2021-08-30] MEDS: 0.9 % Sodium Chloride 1,000 ML IVC SCH (20:57)
[2021-08-30] MEDS: *HR* HYDROmorphone PCA *PREMADE* 20 MG/1MG/ML (20mL) PCA VIAL IVC PRN (21:34)
[2021-08-31] MEDS: 0.9 % Sodium Chloride 1,000 ML IVC SCH ×3 (04:14→19:24)
[2021-08-31] MEDS: Pantoprazole 40 MG VIAL IVP SCH ×2 (05:52→18:05)
[2021-08-31] MEDS: Acetaminophen IV 1,000 MG/100 ML BAG IVPB SCH ×2 (05:53→13:26)
[2021-08-31] MEDS: *HR* Enoxaparin 40 MG/0.4 ML SYRINGE SQ SCH (05:53)
[2021-08-31] MEDS: Piperacillin/Tazobactam 3.375 GM in 0.9 % Sodium Chloride Mini Bag 100 ML IVPB SCH ×2 (08:13→18:06)
[2021-08-31 09:35] LABS: Basophils # 0.1 K/mcL (0.0-0.2); Basophils % 0.5 %; Eosinophils % 0.1 %; Hematocrit 42.2 % (37.5-50.1); Immature Granulocytes % 1.2 % (0-4); Lymphocytes # 0.7 K/mcL (0.6-4.6); Lymphocytes % 5.2 %; Mean Corpuscular HGB Conc 33.2 g/dL (31.6-35.5); Mean Corpuscular Hemoglobin 31.4 pg (28.0-33.3); Mean Corpuscular Volume 94.6 fL (83.0-100.0); Mean Platelet Volume 9.7 fL (9.4-12.4); Monocytes # 1.6 K/mcL (0.0-1.3); Monocytes % 11.7 %; Neutrophils # 11.2 K/mcL (1.6-8.9); Platelet Count 339 K/mcL (140-400); Red Blood Count 4.46 M/mcL (4.19-5.50); Red Cell Distribution Width 14.3 % (11.5-14.5); Segmented Neutrophils % 81.3 %; White Blood Count 13.8 K/mcL (4.3-11.1)
[2021-08-31 09:47] LABS: BUN/Creatinine Ratio 25 (6-26); Blood Urea Nitrogen 26 mg/dL (6-20); Calcium 8.5 mg/dL (8.6-10.3); Carbon Dioxide 24 mEq/L (23-29); Chloride 103 mEq/L (98-107); Glucose 131 mg/dL (70-105); Osmolality,Calculated 287 (280-300); Potassium 4.6 mEq/L (3.5-5.1); Sodium 135 mEq/L (136-145); eGFR For African Americans > 60 (> 60); eGFR For Non-African Americans > 60 (> 60)
[2021-08-31 10:18] LABS: Platelet Estimate Normal (Normal)
[2021-08-31] MEDS: Gabapentin 300 MG CAPSULE PO SCH ×3 (13:58→19:35)
[2021-08-31 14:15] LABS: Magnesium 1.7 mg/dL (1.6-2.6); Phosphorous 2.9 mg/dL (2.7-4.5)
[2021-08-31] MEDS ORDERED: D10% in Water 500 ML IVC PRN (15:07)
[2021-08-31] MEDS ORDERED: Clinimix E 5%-20% SOLUTION 2,000 ML, Amino Acids 10% 0 ML with MVI, adult with vitami... IVC SCH ×2 (17:00)
[2021-08-31] MEDS ORDERED: Clinimix E 5%-15% SOLUTION 2,000 ML IVC SCH (17:00)
[2021-08-31] MEDS: Divalproex (24 HR) 500 MG TABLET PO SCH ×2 (19:34→19:35)
[2021-08-31] MEDS: BuPROPion XL (24 HR) 150 MG TABLET PO SCH ×2 (19:34→19:35)
[2021-08-31] MEDS: clonazePAM 0.5 MG TABLET PO PRN (19:35)
[2021-09-01] MEDS: Piperacillin/Tazobactam 3.375 GM in 0.9 % Sodium Chloride Mini Bag 100 ML IVPB SCH ×4 (00:14→23:44)
[2021-09-01] MEDS: Acetaminophen IV 1,000 MG/100 ML BAG IVPB SCH ×6 (01:59→23:45)
[2021-09-01] MEDS: 0.9 % Sodium Chloride 1,000 ML IVC SCH ×3 (02:46→19:29)
[2021-09-01 04:40] LABS: Basophils # 0.1 K/mcL (0.0-0.2); Basophils % 0.9 %; Eosinophils # 0.1 K/mcL (0.0-0.6); Eosinophils % 0.7 %; Hematocrit 39.3 % (37.5-50.1); Hemoglobin 12.8 g/dL (12.9-16.9); Immature Granulocytes % 1.7 % (0-4); Lymphocytes # 0.9 K/mcL (0.6-4.6); Lymphocytes % 13.4 %; Mean Corpuscular HGB Conc 32.6 g/dL (31.6-35.5); Mean Corpuscular Hemoglobin 31.1 pg (28.0-33.3); Mean Corpuscular Volume 95.6 fL (83.0-100.0); Mean Platelet Volume 9.9 fL (9.4-12.4); Monocytes # 1.5 K/mcL (0.0-1.3); Monocytes % 20.8 %; Neutrophils # 4.4 K/mcL (1.6-8.9); Platelet Count 312 K/mcL (140-400); Red Blood Count 4.11 M/mcL (4.19-5.50); Red Cell Distribution Width 14.3 % (11.5-14.5); Segmented Neutrophils % 62.5 %
[2021-09-01 04:59] LABS: Magnesium 1.8 mg/dL (1.6-2.6); Phosphorous 2.5 mg/dL (2.7-4.5)
[2021-09-01 05:01] LABS: BUN/Creatinine Ratio 29 (6-26); Blood Urea Nitrogen 26 mg/dL (6-20); Calcium 8.5 mg/dL (8.6-10.3); Carbon Dioxide 25 mEq/L (23-29); Chloride 105 mEq/L (98-107); Glucose 95 mg/dL (70-105); Osmolality,Calculated 289 (280-300); Potassium 4.3 mEq/L (3.5-5.1); Sodium 137 mEq/L (136-145); eGFR For African Americans > 60 (> 60); eGFR For Non-African Americans > 60 (> 60)
[2021-09-01] MEDS: *HR* Enoxaparin 40 MG/0.4 ML SYRINGE SQ SCH (05:27)
[2021-09-01] MEDS: Pantoprazole 40 MG VIAL IVP SCH ×2 (05:27→18:05)
[2021-09-01] MEDS ORDERED: Lidocaine -MPF 1% 5 ML AMPUL INFILT ONE (09:09)
[2021-09-01] MEDS ORDERED: Saliva Stimulant 44.3ml BOTTLE PO PRN (09:10)
[2021-09-01] MEDS ORDERED: Chloraseptic Spray 177 ML BOTTLE MM PRN (09:10)
[2021-09-01] MEDS ORDERED: D5% in Water 1,000 ML IVC PRN (09:45)
[2021-09-01] MEDS ORDERED: Dextrose 4 GM Chewable Tablets PO PRN ×2 (09:45)
[2021-09-01] MEDS ORDERED: *HR* Dextrose 50 % in Water (Syg) 50 ML SYRINGE IVP PRN (09:45)
[2021-09-01] MEDS: Gabapentin 300 MG CAPSULE PO SCH ×3 (10:02→19:46)
[2021-09-01 10:58] LABS: Estimated Average Glucose 126 mg/dl
[2021-09-01] MEDS: Ipratropium/Albuterol Neb 3 ML IH SCH ×4 (11:32→23:55)
[2021-09-01] MEDS: Insulin LISPRO 300 UNITS/3 ML VIAL SUBQ SCH ×3 (13:43→20:09)
[2021-09-01] MEDS ORDERED: Clinimix E 5%-15% SOLUTION 2,000 ML with MVI, adult with vitamin K 10 ML IVC SCH (17:00)
[2021-09-01] MEDS: clonazePAM 0.5 MG TABLET PO PRN (19:47)
[2021-09-01] MEDS: Divalproex (24 HR) 500 MG TABLET PO SCH (19:47)
[2021-09-01] MEDS: BuPROPion XL (24 HR) 150 MG TABLET PO SCH (20:04)
[2021-09-01] MEDS: traZODone 50 MG TABLET PO SCH (20:04)
[2021-09-02] MEDS: Insulin LISPRO 300 UNITS/3 ML VIAL SUBQ SCH ×6 (00:41→21:26)
[2021-09-02] MEDS: 0.9 % Sodium Chloride 1,000 ML IVC SCH ×2 (02:03→08:12)
[2021-09-02] MEDS: Pantoprazole 40 MG VIAL IVP SCH ×2 (04:10→18:51)
[2021-09-02] MEDS: *HR* Enoxaparin 40 MG/0.4 ML SYRINGE SQ SCH (05:35)
[2021-09-02] MEDS: Acetaminophen IV 1,000 MG/100 ML BAG IVPB SCH ×4 (05:36→23:21)
[2021-09-02 05:42] LABS: Basophils % 0.6 %; Eosinophils # 0.2 K/mcL (0.0-0.6); Eosinophils % 3.4 %; Hematocrit 34.4 % (37.5-50.1); Hemoglobin 11.5 g/dL (12.9-16.9); Lymphocytes % 14.8 %; Mean Corpuscular HGB Conc 33.4 g/dL (31.6-35.5); Mean Corpuscular Hemoglobin 31.9 pg (28.0-33.3); Mean Corpuscular Volume 95.3 fL (83.0-100.0); Mean Platelet Volume 9.8 fL (9.4-12.4); Monocytes % 14.9 %; Neutrophils # 4.5 K/mcL (1.6-8.9); Platelet Count 323 K/mcL (140-400); Red Blood Count 3.61 M/mcL (4.19-5.50); Red Cell Distribution Width 14.3 % (11.5-14.5); Segmented Neutrophils % 65.3 %
[2021-09-02 05:55] LABS: BUN/Creatinine Ratio 21 (6-26); Blood Urea Nitrogen 17 mg/dL (6-20); Calcium 8.2 mg/dL (8.6-10.3); Carbon Dioxide 26 mEq/L (23-29); Chloride 107 mEq/L (98-107); Glucose 101 mg/dL (70-105); Magnesium 1.9 mg/dL (1.6-2.6); Osmolality,Calculated 288 (280-300); Phosphorous 3.1 mg/dL (2.7-4.5); Potassium 3.7 mEq/L (3.5-5.1); Sodium 138 mEq/L (136-145); eGFR For African Americans > 60 (> 60); eGFR For Non-African Americans > 60 (> 60)
[2021-09-02] MEDS: *HR* HYDROmorphone PCA *PREMADE* 20 MG/1MG/ML (20mL) PCA VIAL IVC PRN (07:08)
[2021-09-02] MEDS: Gabapentin 300 MG CAPSULE PO SCH ×2 (07:42→08:12)
[2021-09-02] MEDS: Piperacillin/Tazobactam 3.375 GM in 0.9 % Sodium Chloride Mini Bag 100 ML IVPB SCH ×3 (08:13→22:56)
[2021-09-02] MEDS ORDERED: Ketorolac 30 MG/ML VIAL IVP ONE (09:03)
[2021-09-02] MEDS ORDERED: *HR* HYDROmorphone (PF) 1 MG/ML SYRINGE IVP ONE (09:10)
[2021-09-02] MEDS ORDERED: Orphenadrine 60 MG/2 ML VIAL IVP PRN (09:11)
[2021-09-02] MEDS: Furosemide 20 MG/2 ML VIAL IVP SCH ×2 (09:36→18:48)
[2021-09-02] MEDS: Gabapentin 300 MG CAPSULE GTUBE SCH ×3 (09:37→20:20)
[2021-09-02] MEDS: Ketorolac 30 MG/ML VIAL IVP SCH ×3 (11:57→22:56)
[2021-09-02 16:43] LABS: BUN/Creatinine Ratio 21 (6-26); Blood Urea Nitrogen 20 mg/dL (6-20); Calcium 6.6 mg/dL (8.6-10.3); Carbon Dioxide 21 mEq/L (23-29); Chloride 106 mEq/L (98-107); Glucose 116 mg/dL (70-105); Magnesium 1.6 mg/dL (1.6-2.6); Osmolality,Calculated 288 (280-300); Potassium 5.3 mEq/L (3.5-5.1); Sodium 137 mEq/L (136-145); Troponin I < 0.03 ng/mL (< 0.04); eGFR For African Americans > 60 (> 60); eGFR For Non-African Americans > 60 (> 60)
[2021-09-02] MEDS ORDERED: Clinimix E 5%-15% SOLUTION 2,000 ML IVC SCH (17:00)
[2021-09-02] MEDS: Calcium Gluconate 1gm/50mL 1 GM/50 ML BAG IVPB SCH ×2 (18:49→20:19)
[2021-09-02] MEDS: traZODone 50 MG TABLET PO SCH (20:20)
[2021-09-02] MEDS: Divalproex (24 HR) 500 MG TABLET PO SCH (20:20)
[2021-09-02] MEDS: BuPROPion XL (24 HR) 150 MG TABLET PO SCH (20:20)
[2021-09-03] MEDS: Insulin LISPRO 300 UNITS/3 ML VIAL SUBQ SCH ×6 (00:33→21:08)
[2021-09-03 04:13] LABS: BUN/Creatinine Ratio 24 (6-26); Blood Urea Nitrogen 25 mg/dL (6-20); Calcium 8.5 mg/dL (8.6-10.3); Carbon Dioxide 23 mEq/L (23-29); Chloride 106 mEq/L (98-107); Glucose 145 mg/dL (70-105); Magnesium 1.8 mg/dL (1.6-2.6); Osmolality,Calculated 289 (280-300); Phosphorous 4.3 mg/dL (2.7-4.5); Potassium 4.3 mEq/L (3.5-5.1); Sodium 136 mEq/L (136-145); eGFR For African Americans > 60 (> 60); eGFR For Non-African Americans > 60 (> 60)
[2021-09-03] MEDS: Pantoprazole 40 MG VIAL IVP SCH ×2 (04:45→17:30)
[2021-09-03] MEDS: Ketorolac 30 MG/ML VIAL IVP SCH ×3 (04:45→17:30)
[2021-09-03] MEDS: Acetaminophen IV 1,000 MG/100 ML BAG IVPB SCH ×3 (04:46→17:30)
[2021-09-03] MEDS: Furosemide 20 MG/2 ML VIAL IVP SCH ×2 (10:05→16:59)
[2021-09-03] MEDS: Piperacillin/Tazobactam 3.375 GM in 0.9 % Sodium Chloride Mini Bag 100 ML IVPB SCH ×2 (10:05→17:00)
[2021-09-03] MEDS: Gabapentin 300 MG CAPSULE GTUBE SCH ×3 (10:06→21:07)
[2021-09-03] MEDS: *HR* Enoxaparin 40 MG/0.4 ML SYRINGE SQ SCH (10:06)
[2021-09-03] MEDS ORDERED: CLINIMIX E IVC SCH (17:00)
[2021-09-03] MEDS ORDERED: AMINO ACIDS 10% IVC SCH (17:00)
[2021-09-03] MEDS ORDERED: MVI IVC SCH (17:00)
[2021-09-03] MEDS ORDERED: [UNRECOGNIZED DRUG - OTHER] IVC SCH (17:00)
[2021-09-03] MEDS: Divalproex (24 HR) 500 MG TABLET PO SCH (21:06)
[2021-09-03] MEDS: traZODone 50 MG TABLET PO SCH (21:07)
[2021-09-03] MEDS: BuPROPion XL (24 HR) 150 MG TABLET PO SCH (21:07)
[2021-09-04] MEDS: Acetaminophen IV 1,000 MG/100 ML BAG IVPB SCH ×3 (00:13→11:52)
[2021-09-04] MEDS: Insulin LISPRO 300 UNITS/3 ML VIAL SUBQ SCH ×6 (00:13→21:06)
[2021-09-04] MEDS: Piperacillin/Tazobactam 3.375 GM in 0.9 % Sodium Chloride Mini Bag 100 ML IVPB SCH ×3 (00:14→20:59)
[2021-09-04] MEDS: Ketorolac 30 MG/ML VIAL IVP SCH ×4 (00:14→17:59)
[2021-09-04] MEDS: Pantoprazole 40 MG VIAL IVP SCH ×2 (06:04→17:59)
[2021-09-04] MEDS: *HR* Enoxaparin 40 MG/0.4 ML SYRINGE SQ SCH (06:06)
[2021-09-04] MEDS: Furosemide 20 MG/2 ML VIAL IVP SCH ×2 (08:36→18:00)
[2021-09-04] MEDS: Gabapentin 300 MG CAPSULE PO SCH ×3 (08:41→21:00)
[2021-09-04] MEDS: polyethylene glycoL 3350 17 GM POWD.PACK PO SCH (12:16)
[2021-09-04 12:35] LABS: Alanine Aminotransferase 27 Units/L (7-52); Albumin 2.7 g/dL (3.5-5.7); Alkaline Phosphatase 55 Units/L (34-104); Aspartate Amino Transferase 18 Units/L (13-39); BUN/Creatinine Ratio 33 (6-26); Bilirubin,Total 0.6 mg/dL (0.3-1.0); Blood Urea Nitrogen 40 mg/dL (6-20); Calcium 8.6 mg/dL (8.6-10.3); Carbon Dioxide 28 mEq/L (23-29); Chloride 103 mEq/L (98-107); Globulin 2.8 g/dL (2.4-3.5); Glucose 91 mg/dL (70-105); Magnesium 2.2 mg/dL (1.6-2.6); Osmolality,Calculated 293 (280-300); Phosphorous 3.7 mg/dL (2.7-4.5); Sodium 137 mEq/L (136-145); Total Protein 5.5 g/dL (6.4-8.9); eGFR For African Americans > 60 (> 60); eGFR For Non-African Americans > 60 (> 60)
[2021-09-04] MEDS ORDERED: AMINO ACIDS 10% IVC SCH (17:00)
[2021-09-04] MEDS ORDERED: CLINIMIX E IVC SCH (17:00)
[2021-09-04] MEDS: Acetaminophen 325 MG TABLET PO SCH (18:00)
[2021-09-04] MEDS: BuPROPion XL (24 HR) 150 MG TABLET PO SCH (21:00)
[2021-09-04] MEDS: traZODone 50 MG TABLET PO SCH (21:00)
[2021-09-04] MEDS: Divalproex (24 HR) 500 MG TABLET PO SCH (21:01)
[2021-09-04] MEDS: clonazePAM 0.5 MG TABLET PO PRN (21:05)
[2021-09-05] MEDS: Insulin LISPRO 300 UNITS/3 ML VIAL SUBQ SCH ×6 (01:09→20:04)
[2021-09-05] MEDS: Piperacillin/Tazobactam 3.375 GM in 0.9 % Sodium Chloride Mini Bag 100 ML IVPB SCH ×4 (05:08→20:13)
[2021-09-05] MEDS: Ketorolac 30 MG/ML VIAL IVP SCH ×2 (06:11)
[2021-09-05] MEDS: Pantoprazole 40 MG VIAL IVP SCH ×2 (06:12→17:38)
[2021-09-05] MEDS: *HR* Enoxaparin 40 MG/0.4 ML SYRINGE SQ SCH (06:12)
[2021-09-05] MEDS: Acetaminophen 325 MG TABLET PO SCH ×4 (06:13→17:37)
[2021-09-05 07:13] LABS: Alanine Aminotransferase 21 Units/L (7-52); Albumin 2.5 g/dL (3.5-5.7); Albumin/Globulin Ratio 0.9 (1.1-2.2); Alkaline Phosphatase 78 Units/L (34-104); Aspartate Amino Transferase 18 Units/L (13-39); BUN/Creatinine Ratio 39 (6-26); Bilirubin,Total 0.6 mg/dL (0.3-1.0); Blood Urea Nitrogen 41 mg/dL (6-20); Calcium 7.9 mg/dL (8.6-10.3); Carbon Dioxide 23 mEq/L (23-29); Chloride 103 mEq/L (98-107); Globulin 2.8 g/dL (2.4-3.5); Glucose 99 mg/dL (70-105); Osmolality,Calculated 298 (280-300); Phosphorous 3.4 mg/dL (2.7-4.5); Potassium 3.6 mEq/L (3.5-5.1); Sodium 139 mEq/L (136-145); Total Protein 5.3 g/dL (6.4-8.9); eGFR For African Americans > 60 (> 60); eGFR For Non-African Americans > 60 (> 60)
[2021-09-05] MEDS ORDERED: Methylnaltrexone 12 MG/0.6 ML SYRINGE SQ ONE (07:30)
[2021-09-05] MEDS: Gabapentin 300 MG CAPSULE PO SCH ×3 (07:47→20:14)
[2021-09-05] MEDS: polyethylene glycoL 3350 17 GM POWD.PACK PO SCH (07:47)
[2021-09-05] MEDS: Furosemide 20 MG/2 ML VIAL IVP SCH ×2 (07:47→16:45)
[2021-09-05] MEDS ORDERED: Prochlorperazine 10 MG/2 ML VIAL IVP ONE (08:19)
[2021-09-05] MEDS ORDERED: Bisacodyl 10 MG RECTAL SUPPOSITORY RC ONE (08:23)
[2021-09-05] MEDS: Ibuprofen 800 MG TABLET PO SCH ×2 (10:49→16:46)
[2021-09-05] MEDS: Baclofen 10 MG TABLET PO SCH ×3 (10:49→20:14)
[2021-09-05] MEDS: *HR* OxyCODONE Immed Rel 5 MG TABLET PO PRN (11:01)
[2021-09-05] MEDS ORDERED: Isovue-370 500 ML BOTTLE IVP ONE ×2 (11:58)
[2021-09-05] MEDS ORDERED: Isovue-370 500 ML BOTTLE PO ONE (12:05)
[2021-09-05 14:55] LABS: Nucleated Red Blood Cells 0.3 /100 WBC (0)
[2021-09-05 15:07] LABS: Hematocrit 33.7 % (37.5-50.1); Hemoglobin 9.7 g/dL (12.9-16.9); Mean Corpuscular HGB Conc 28.8 g/dL (31.6-35.5); Mean Corpuscular Hemoglobin 31.3 pg (28.0-33.3); Mean Corpuscular Volume 108.7 fL (83.0-100.0); Mean Platelet Volume 10.3 fL (9.4-12.4); Platelet Count 354 K/mcL (140-400); Red Cell Distribution Width 15.7 % (11.5-14.5); White Blood Count 9.1 K/mcL (4.3-11.1)
[2021-09-05 15:41] LABS: Basophilic Stippling 1+ (Not Present); Eosinophils # 0.7 K/mcL (0.0-0.6); Lymphocytes # 1.3 K/mcL (0.6-4.6); Monocytes # 0.6 K/mcL (0.0-1.3); Neutrophils # 6.6 K/mcL (1.6-8.9)
[2021-09-05 15:43] LABS: Hypochromasia Present (Not Present); Large Platelets Present (Not Present); Toxic Granulation Present (Not Present)
[2021-09-05 16:46] LABS: Bilirubin,Urine Negative (Negative); Blood,Urine Trace (Negative); Clarity,Urine Clear (Clear); Color,Urine Light-Yellow (Yellow); Glucose,Urine (UA) Normal (Normal); Ketones,Urine Negative (Negative); Leukocyte Esterase,Urine Negative (Negative); Nitrite,Urine Negative (Negative); PH,Urine 6.5 pH Units (5.0-8.0); Protein,Urine Trace mg/dL (Neg-Trace); RBC,Urine 0-3 per hpf (0-3); Specific Gravity,Urine > 1.030 (1.010-1.025); Urobilinogen,Urine Normal (Normal); WBC,Urine 0-3 per hpf (0-3)
[2021-09-05] MEDS ORDERED: CLINIMIX E IVC SCH (17:00)
[2021-09-05] MEDS ORDERED: MVI IVC SCH (17:00)
[2021-09-05] MEDS ORDERED: AMINO ACIDS 10% IVC SCH (17:00)
[2021-09-05] MEDS ORDERED: [UNRECOGNIZED DRUG - OTHER] IVC SCH (17:00)
[2021-09-05] MEDS: BuPROPion XL (24 HR) 150 MG TABLET PO SCH (20:14)
[2021-09-05] MEDS: Divalproex (24 HR) 500 MG TABLET PO SCH (20:15)
[2021-09-05] MEDS: traZODone 50 MG TABLET PO SCH (20:15)
[2021-09-06] MEDS: Insulin LISPRO 300 UNITS/3 ML VIAL SUBQ SCH ×6 (00:02→20:45)
[2021-09-06] MEDS: Acetaminophen 325 MG TABLET PO SCH ×5 (00:32→23:25)
[2021-09-06] MEDS: Ibuprofen 800 MG TABLET PO SCH ×4 (00:32→23:25)
[2021-09-06] MEDS: Piperacillin/Tazobactam 3.375 GM in 0.9 % Sodium Chloride Mini Bag 100 ML IVPB SCH ×3 (04:00→19:37)
[2021-09-06 04:55] LABS: Alanine Aminotransferase 21 Units/L (7-52); Albumin 2.4 g/dL (3.5-5.7); Albumin/Globulin Ratio 0.9 (1.1-2.2); Alkaline Phosphatase 102 Units/L (34-104); Aspartate Amino Transferase 29 Units/L (13-39); BUN/Creatinine Ratio 35 (6-26); Bilirubin,Total 0.5 mg/dL (0.3-1.0); Blood Urea Nitrogen 36 mg/dL (6-20); Calcium 8.2 mg/dL (8.6-10.3); Carbon Dioxide 27 mEq/L (23-29); Chloride 103 mEq/L (98-107); Globulin 2.7 g/dL (2.4-3.5); Glucose 122 mg/dL (70-105); Magnesium 2.1 mg/dL (1.6-2.6); Osmolality,Calculated 294 (280-300); Phosphorous 3.8 mg/dL (2.7-4.5); Potassium 3.6 mEq/L (3.5-5.1); Sodium 137 mEq/L (136-145); Total Protein 5.1 g/dL (6.4-8.9); eGFR For African Americans > 60 (> 60); eGFR For Non-African Americans > 60 (> 60)
[2021-09-06] MEDS: *HR* Enoxaparin 40 MG/0.4 ML SYRINGE SQ SCH (06:33)
[2021-09-06] MEDS: Pantoprazole 40 MG VIAL IVP SCH ×2 (06:33→17:24)
[2021-09-06] MEDS: Baclofen 10 MG TABLET PO SCH ×3 (09:21→19:37)
[2021-09-06] MEDS: Gabapentin 300 MG CAPSULE PO SCH ×3 (09:21→19:38)
[2021-09-06] MEDS: *HR* OxyCODONE Immed Rel 5 MG TABLET PO PRN ×2 (09:21→15:15)
[2021-09-06] MEDS: Furosemide 20 MG/2 ML VIAL IVP SCH ×2 (09:22→17:23)
[2021-09-06] MEDS: polyethylene glycoL 3350 17 GM POWD.PACK PO SCH (10:15)
[2021-09-06] MEDS ORDERED: [UNRECOGNIZED DRUG - NUTRITION] IVC SCH (17:00)
[2021-09-06] MEDS: BuPROPion XL (24 HR) 150 MG TABLET PO SCH (19:37)
[2021-09-06] MEDS: Divalproex (24 HR) 500 MG TABLET PO SCH (19:37)
[2021-09-06] MEDS: traZODone 50 MG TABLET PO SCH (19:38)
[2021-09-07] MEDS: Insulin LISPRO 300 UNITS/3 ML VIAL SUBQ SCH ×6 (00:30→22:01)
[2021-09-07] MEDS: Piperacillin/Tazobactam 3.375 GM in 0.9 % Sodium Chloride Mini Bag 100 ML IVPB SCH ×3 (04:09→21:59)
[2021-09-07 04:47] LABS: Alanine Aminotransferase 23 Units/L (7-52); Albumin 2.5 g/dL (3.5-5.7); Albumin/Globulin Ratio 0.8 (1.1-2.2); Alkaline Phosphatase 133 Units/L (34-104); Aspartate Amino Transferase 32 Units/L (13-39); BUN/Creatinine Ratio 31 (6-26); Bilirubin,Total 0.6 mg/dL (0.3-1.0); Blood Urea Nitrogen 29 mg/dL (6-20); Calcium 8.3 mg/dL (8.6-10.3); Carbon Dioxide 27 mEq/L (23-29); Chloride 103 mEq/L (98-107); Glucose 99 mg/dL (70-105); Magnesium 1.9 mg/dL (1.6-2.6); Osmolality,Calculated 292 (280-300); Phosphorous 3.7 mg/dL (2.7-4.5); Potassium 3.8 mEq/L (3.5-5.1); Sodium 138 mEq/L (136-145); Total Protein 5.5 g/dL (6.4-8.9); eGFR For African Americans > 60 (> 60); eGFR For Non-African Americans > 60 (> 60)
[2021-09-07] MEDS: Pantoprazole 40 MG VIAL IVP SCH ×2 (05:58→17:52)
[2021-09-07] MEDS: Acetaminophen 325 MG TABLET PO SCH ×4 (05:58→23:18)
[2021-09-07] MEDS: *HR* Enoxaparin 40 MG/0.4 ML SYRINGE SQ SCH (05:59)
[2021-09-07] MEDS: polyethylene glycoL 3350 17 GM POWD.PACK PO SCH (10:41)
[2021-09-07] MEDS: Baclofen 10 MG TABLET PO SCH ×3 (10:42→21:50)
[2021-09-07] MEDS: Gabapentin 300 MG CAPSULE PO SCH ×3 (10:43→21:51)
[2021-09-07] MEDS: Ibuprofen 800 MG TABLET PO SCH ×3 (10:43→23:19)
[2021-09-07] MEDS: Furosemide 20 MG/2 ML VIAL IVP SCH ×2 (10:43→16:39)
[2021-09-07] MEDS: 0.9 % Sodium Chloride 1,000 ML IVC SCH (14:04)
[2021-09-07] MEDS ORDERED: [UNRECOGNIZED DRUG - NUTRITION] IVC SCH (17:00)
[2021-09-07] MEDS: traZODone 50 MG TABLET PO SCH (21:49)
[2021-09-07] MEDS: Divalproex (24 HR) 500 MG TABLET PO SCH (21:50)
[2021-09-07] MEDS: BuPROPion XL (24 HR) 150 MG TABLET PO SCH (21:52)
[2021-09-08] MEDS: Piperacillin/Tazobactam 3.375 GM in 0.9 % Sodium Chloride Mini Bag 100 ML IVPB SCH ×2 (05:41→12:11)
[2021-09-08] MEDS: Acetaminophen 325 MG TABLET PO SCH ×3 (05:45→17:26)
[2021-09-08] MEDS: Insulin LISPRO 300 UNITS/3 ML VIAL SUBQ SCH ×6 (05:45→21:38)
[2021-09-08] MEDS: *HR* Enoxaparin 40 MG/0.4 ML SYRINGE SQ SCH (05:47)
[2021-09-08 06:05] LABS: Alanine Aminotransferase 25 Units/L (7-52); Albumin 2.5 g/dL (3.5-5.7); Albumin/Globulin Ratio 0.9 (1.1-2.2); Alkaline Phosphatase 149 Units/L (34-104); Aspartate Amino Transferase 30 Units/L (13-39); BUN/Creatinine Ratio 27 (6-26); Bilirubin,Total 0.5 mg/dL (0.3-1.0); Blood Urea Nitrogen 27 mg/dL (6-20); Calcium 8.5 mg/dL (8.6-10.3); Carbon Dioxide 29 mEq/L (23-29); Chloride 103 mEq/L (98-107); Globulin 2.9 g/dL (2.4-3.5); Glucose 124 mg/dL (70-105); Magnesium 2.1 mg/dL (1.6-2.6); Osmolality,Calculated 293 (280-300); Phosphorous 4.2 mg/dL (2.7-4.5); Potassium 3.6 mEq/L (3.5-5.1); Sodium 138 mEq/L (136-145); Total Protein 5.4 g/dL (6.4-8.9); Triglycerides 117 mg/dL (< 150); eGFR For African Americans > 60 (> 60); eGFR For Non-African Americans > 60 (> 60)
[2021-09-08] MEDS: Pantoprazole 40 MG VIAL IVP SCH ×2 (06:14→17:25)
[2021-09-08 06:28] LABS: Basophils % 0.5 %; Eosinophils # 0.3 K/mcL (0.0-0.6); Eosinophils % 3.4 %; Hematocrit 33.9 % (37.5-50.1); Hemoglobin 11.1 g/dL (12.9-16.9); Immature Granulocytes % 5.1 % (0-4); Mean Corpuscular HGB Conc 32.7 g/dL (31.6-35.5); Mean Corpuscular Hemoglobin 31.5 pg (28.0-33.3); Mean Corpuscular Volume 96.3 fL (83.0-100.0); Mean Platelet Volume 10.1 fL (9.4-12.4); Monocytes # 1.1 K/mcL (0.0-1.3); Monocytes % 13.3 %; Platelet Count 560 K/mcL (140-400); Red Blood Count 3.52 M/mcL (4.19-5.50); Red Cell Distribution Width 14.7 % (11.5-14.5); Segmented Neutrophils % 65.7 %; White Blood Count 8.3 K/mcL (4.3-11.1)
[2021-09-08 06:57] LABS: Neutrophils # 5.5 K/mcL (1.6-8.9)
[2021-09-08 07:17] LABS: Platelet Estimate Marked Increase (Normal); Toxic Granulation Present (Not Present)
[2021-09-08] MEDS: 0.9 % Sodium Chloride 1,000 ML IVC SCH (07:51)
[2021-09-08] MEDS: Gabapentin 300 MG CAPSULE PO SCH ×3 (07:58→21:37)
[2021-09-08] MEDS: Baclofen 10 MG TABLET PO SCH (07:58)
[2021-09-08] MEDS: polyethylene glycoL 3350 17 GM POWD.PACK PO SCH (07:58)
[2021-09-08] MEDS: Ibuprofen 800 MG TABLET PO SCH ×2 (07:58→16:34)
[2021-09-08] MEDS: Furosemide 20 MG/2 ML VIAL IVP SCH ×2 (07:59→17:24)
[2021-09-08] MEDS ORDERED: MVI IVC SCH (17:00)
[2021-09-08] MEDS ORDERED: AMINO ACIDS 10% IVC SCH (17:00)
[2021-09-08] MEDS ORDERED: CLINIMIX E IVC SCH (17:00)
[2021-09-08] MEDS ORDERED: [UNRECOGNIZED DRUG - OTHER] IVC SCH (17:00)
[2021-09-08] MEDS ORDERED: *HR* FentaNYL (PF) 100 MCG/2 ML VIAL ONE ×4 (17:24→22:12)
[2021-09-08] MEDS ORDERED: *HR* Midazolam HCl 2 MG/2 ML VIAL ONE (17:25)
[2021-09-08] MEDS ORDERED: *HR* Propofol 200 MG/20 ML VIAL IVP ONE (17:25)
[2021-09-08] MEDS ORDERED: *HR* Succinylcholine 200 MG/10 ML VIAL IVP ONE (17:25)
[2021-09-08] MEDS ORDERED: Lidocaine -MPF 2% 2 ML VIAL ONE (17:25)
[2021-09-08] MEDS ORDERED: *HR* Rocuronium Bromide 50 MG/5 ML VIAL ONE ×2 (17:26→22:59)
[2021-09-08] MEDS ORDERED: Albumin Human 5% 25.0 GM/500 ML IV.SOLN ONE (18:07)
[2021-09-08] MEDS ORDERED: Piperacillin/Tazobactam 3.375 GM in 0.9 % Sodium Chloride Mini Bag 100 ML IVPB SCH (21:00)
[2021-09-08] MEDS ORDERED: Acetaminophen IV 1,000 MG/100 ML BAG IVPB ONE ×2 (21:05→21:12)
[2021-09-08] MEDS: BuPROPion XL (24 HR) 150 MG TABLET PO SCH (21:37)
[2021-09-08] MEDS: traZODone 50 MG TABLET PO SCH (21:37)
[2021-09-08] MEDS: Divalproex (24 HR) 500 MG TABLET PO SCH (21:37)
[2021-09-09] MEDS ORDERED: *HR* Propofol 200 MG/20 ML VIAL IVP ONE (00:20)
[2021-09-09] MEDS: Ibuprofen 800 MG TABLET PO SCH (00:22)
[2021-09-09] MEDS: Acetaminophen 325 MG TABLET PO SCH (00:23)
[2021-09-09] MEDS ORDERED: CefOXitin 2,000 MG VIAL ONE (00:29)
[2021-09-09] MEDS ORDERED: Artificial Tears SOLN 15 ML BOTTLE BOTH EYES PRN ×2 (01:42→02:10)
[2021-09-09] MEDS ORDERED: FentaNYL (PF) 1,000 MCG/100 ML IV.SOLN IVC SCH (01:45)
[2021-09-09] MEDS ORDERED: Cisatracurium 200 MG in 0.9 % Sodium Chloride 80 ML IVC SCH (02:00)
[2021-09-09] MEDS ORDERED: MVI IVC SCH (02:10)
[2021-09-09] MEDS ORDERED: Naloxone 0.4 MG/ML INJ IVP PRN (02:10)
[2021-09-09] MEDS ORDERED: *HR* Dextrose 50 % in Water (Syg) 50 ML SYRINGE IVP PRN (02:10)
[2021-09-09] MEDS ORDERED: AMINO ACIDS 10% IVC SCH (02:10)
[2021-09-09] MEDS ORDERED: D5% in Water 1,000 ML IVC PRN (02:10)
[2021-09-09] MEDS ORDERED: [UNRECOGNIZED DRUG - OTHER] IVC SCH (02:10)
[2021-09-09] MEDS ORDERED: CLINIMIX E IVC SCH (02:10)
[2021-09-09] MEDS ORDERED: D10% in Water 500 ML IVC PRN (02:10)
[2021-09-09] MEDS: FentaNYL (PF) 1,000 MCG/100 ML IV.SOLN IVC SCH ×5 (02:48→22:11)
[2021-09-09] MEDS: Cisatracurium 200 MG in 0.9 % Sodium Chloride 80 ML IVC SCH ×3 (03:17→18:04)
[2021-09-09] MEDS ORDERED: Artificial Tears SOLN 15 ML BOTTLE BOTH EYES SCH (04:00)
[2021-09-09 04:06] LABS: VBG Ionized Calcium 1.13 mmol/L (1.15-1.35)
[2021-09-09] MEDS: Artificial Tears SOLN 15 ML BOTTLE BOTH EYES SCH ×6 (04:28→23:43)
[2021-09-09] MEDS: 0.9 % Sodium Chloride 1,000 ML IVC SCH (04:28)
[2021-09-09] MEDS: Insulin LISPRO 300 UNITS/3 ML VIAL SUBQ SCH ×6 (04:28→23:43)
[2021-09-09 04:38] LABS: ABG Base Excess 0 mEq/L (-2 to 3); ABG HCO3 27 mEq/L (21-27); ABG Oxygen Saturation 100 % (95-98); ABG PCO2 55 mmHg (35-45); ABG PH 7.31 pH Units (7.32-7.45); ABG PO2 363 mmHg (85-104); ABG TCO2 29 mEq/L (20-26); Blood Gas Modality AF; Blood Gas VT 500 cc
[2021-09-09 04:42] LABS: Basophils # 0.1 K/mcL (0.0-0.2); Basophils % 0.6 %; Eosinophils % 0.2 %; Hematocrit 34.2 % (37.5-50.1); Hemoglobin 10.7 g/dL (12.9-16.9); Immature Granulocytes % 6.1 % (0-4); Lymphocytes # 0.8 K/mcL (0.6-4.6); Lymphocytes % 8.6 %; Mean Corpuscular HGB Conc 31.3 g/dL (31.6-35.5); Mean Corpuscular Hemoglobin 30.6 pg (28.0-33.3); Mean Corpuscular Volume 97.7 fL (83.0-100.0); Mean Platelet Volume 10.4 fL (9.4-12.4); Monocytes # 0.7 K/mcL (0.0-1.3); Monocytes % 7.2 %; Neutrophils # 7.2 K/mcL (1.6-8.9); Platelet Count 637 K/mcL (140-400); Red Cell Distribution Width 14.8 % (11.5-14.5); Segmented Neutrophils % 77.3 %; White Blood Count 9.3 K/mcL (4.3-11.1)
[2021-09-09] MEDS: Piperacillin/Tazobactam 3.375 GM in 0.9 % Sodium Chloride Mini Bag 100 ML IVPB SCH ×3 (05:11→21:26)
[2021-09-09 05:31] LABS: Alanine Aminotransferase 18 Units/L (7-52); Albumin 2.1 g/dL (3.5-5.7); Alkaline Phosphatase 97 Units/L (34-104); Aspartate Amino Transferase 29 Units/L (13-39); BUN/Creatinine Ratio 36 (6-26); Bilirubin,Total 1.1 mg/dL (0.3-1.0); Blood Urea Nitrogen 27 mg/dL (6-20); Calcium 7.5 mg/dL (8.6-10.3); Carbon Dioxide 25 mEq/L (23-29); Chloride 104 mEq/L (98-107); Globulin 2.2 g/dL (2.4-3.5); Glucose 212 mg/dL (70-105); Magnesium 1.8 mg/dL (1.6-2.6); Osmolality,Calculated 293 (280-300); Phosphorous 4.3 mg/dL (2.7-4.5); Potassium 4.4 mEq/L (3.5-5.1); Sodium 136 mEq/L (136-145); Total Protein 4.3 g/dL (6.4-8.9); eGFR For African Americans > 60 (> 60); eGFR For Non-African Americans > 60 (> 60)
[2021-09-09] MEDS: Albumin Human 5% 12.5 GM/250 ML IV.SOLN IVC SCH ×2 (06:17→06:33)
[2021-09-09 06:19] LABS: Platelet Estimate Marked Increase (Normal); Toxic Granulation Present (Not Present)
[2021-09-09] MEDS ORDERED: Furosemide 40 MG/4 ML VIAL IVP ONE (07:06)
[2021-09-09] MEDS: Chlorhexidine Rinse 15 ML MOUTHWASH MM SCH ×2 (07:43→19:49)
[2021-09-09] MEDS: Micafungin 100 MG in 0.9 % Sodium Chloride Mini Bag 100 ML IVPB SCH (07:43)
[2021-09-09] MEDS ORDERED: MetroNIDAZOLE 500 MG/100 ML 500 MG/100 ML BAG IVPB SCH (08:00)
[2021-09-09] MEDS ORDERED: Chlorhexidine Rinse 15 ML MOUTHWASH MM SCH (09:00)
[2021-09-09] MEDS ORDERED: [UNRECOGNIZED DRUG - NUTRITION] IVC SCH (17:00)
[2021-09-09] MEDS: Phenylephrine 20 MG in 0.9 % Sodium Chloride 250 ML IVC SCH (19:48)
[2021-09-09] MEDS ORDERED: Albumin Human 5% 12.5 GM/250 ML IV.SOLN IVPB ONE (20:33)
[2021-09-10] MEDS: Cisatracurium 200 MG in 0.9 % Sodium Chloride 80 ML IVC SCH ×2 (01:27→23:17)
[2021-09-10] MEDS: 0.9 % Sodium Chloride 1,000 ML IVC SCH ×2 (02:12→23:16)
[2021-09-10] MEDS: *HR* Heparin 5,000 UNIT/ML VIAL SQ SCH ×3 (02:15→17:01)
[2021-09-10] MEDS: FentaNYL (PF) 1,000 MCG/100 ML IV.SOLN IVC SCH ×5 (03:23→21:05)
[2021-09-10] MEDS: Artificial Tears SOLN 15 ML BOTTLE BOTH EYES SCH ×6 (03:38→23:15)
[2021-09-10 03:46] LABS: Basophils # 0.1 K/mcL (0.0-0.2); Basophils % 0.6 %; Eosinophils # 0.2 K/mcL (0.0-0.6); Eosinophils % 1.4 %; Hematocrit 24.3 % (37.5-50.1); Immature Granulocytes % 8.4 % (0-4); Lymphocytes # 1.3 K/mcL (0.6-4.6); Mean Corpuscular HGB Conc 32.1 g/dL (31.6-35.5); Mean Corpuscular Hemoglobin 31.2 pg (28.0-33.3); Mean Corpuscular Volume 97.2 fL (83.0-100.0); Mean Platelet Volume 10.7 fL (9.4-12.4); Monocytes # 1.9 K/mcL (0.0-1.3); Monocytes % 11.5 %; Neutrophils # 11.4 K/mcL (1.6-8.9); Nucleated Red Blood Cells 0.2 /100 WBC (0); Platelet Count 631 K/mcL (140-400); Red Cell Distribution Width 14.7 % (11.5-14.5); Segmented Neutrophils % 70.1 %
[2021-09-10 03:51] LABS: Hemoglobin 7.8 g/dL (12.9-16.9); White Blood Count 16.2 K/mcL (4.3-11.1)
[2021-09-10] MEDS: Insulin LISPRO 300 UNITS/3 ML VIAL SUBQ SCH ×6 (03:51→23:16)
[2021-09-10 03:57] LABS: ABG Base Excess 1 mEq/L (-2 to 3); ABG HCO3 26 mEq/L (21-27); ABG Oxygen Saturation 93 % (95-98); ABG PCO2 46 mmHg (35-45); ABG PH 7.36 pH Units (7.32-7.45); ABG PO2 68 mmHg (85-104); ABG TCO2 27 mEq/L (20-26); Blood Gas Modality AF; Blood Gas VT 500 cc
[2021-09-10 04:11] LABS: Alanine Aminotransferase 13 Units/L (7-52); Albumin 2.1 g/dL (3.5-5.7); Albumin/Globulin Ratio 1.2 (1.1-2.2); Alkaline Phosphatase 56 Units/L (34-104); Aspartate Amino Transferase 18 Units/L (13-39); BUN/Creatinine Ratio 38 (6-26); Bilirubin,Total 0.4 mg/dL (0.3-1.0); Blood Urea Nitrogen 40 mg/dL (6-20); Calcium 7.2 mg/dL (8.6-10.3); Carbon Dioxide 27 mEq/L (23-29); Chloride 104 mEq/L (98-107); Globulin 1.8 g/dL (2.4-3.5); Glucose 152 mg/dL (70-105); Osmolality,Calculated 293 (280-300); Phosphorous 4.2 mg/dL (2.7-4.5); Potassium 4.5 mEq/L (3.5-5.1); Sodium 135 mEq/L (136-145); Total Protein 3.9 g/dL (6.4-8.9); eGFR For African Americans > 60 (> 60); eGFR For Non-African Americans > 60 (> 60)
[2021-09-10 04:22] LABS: Platelet Estimate Marked Increase (Normal)
[2021-09-10 04:23] LABS: Hypochromasia Present (Not Present); Smudge Cells Present (Not Present)
[2021-09-10] MEDS: Piperacillin/Tazobactam 3.375 GM in 0.9 % Sodium Chloride Mini Bag 100 ML IVPB SCH ×3 (05:08→20:47)
[2021-09-10] MEDS ORDERED: Vancomycin 1,750 MG/517.5 ML IV.SOLN IVPB ONE (06:40)
[2021-09-10] MEDS ORDERED: Furosemide 40 MG/4 ML VIAL IVP ONE (07:13)
[2021-09-10] MEDS ORDERED: Isovue-370 500 ML BOTTLE IVP ONE (07:30)
[2021-09-10] MEDS: Micafungin 100 MG in 0.9 % Sodium Chloride Mini Bag 100 ML IVPB SCH (08:53)
[2021-09-10] MEDS: Chlorhexidine Rinse 15 ML MOUTHWASH MM SCH ×2 (08:53→20:47)
[2021-09-10] MEDS ORDERED: Fluconazole 400 MG/200 ML 400 MG/200 ML BAG IVPB SCH ×2 (09:00)
[2021-09-10 09:57] LABS: Hematocrit 23.1 % (37.5-50.1); Hemoglobin 7.4 g/dL (12.9-16.9)
[2021-09-10] MEDS: Phenylephrine 20 MG in 0.9 % Sodium Chloride 250 ML IVC SCH (10:17)
[2021-09-10] MEDS: Pantoprazole 40 MG VIAL IVP SCH (13:36)
[2021-09-10] MEDS ORDERED: CLINIMIX E IVC SCH (17:00)
[2021-09-10] MEDS ORDERED: AMINO ACIDS 10% IVC SCH (17:00)
[2021-09-10] MEDS ORDERED: MVI IVC SCH (17:00)
[2021-09-10] MEDS ORDERED: [UNRECOGNIZED DRUG - OTHER] IVC SCH (17:00)
[2021-09-10] MEDS: Vancomycin 1,500 MG/265 ML IV.SOLN IVPB SCH (20:48)
[2021-09-11] MEDS: FentaNYL (PF) 2,500 MCG/50 ML IV.SOLN IVC SCH ×3 (01:33→15:35)
[2021-09-11] MEDS: Artificial Tears SOLN 15 ML BOTTLE BOTH EYES SCH ×6 (03:17→23:13)
[2021-09-11 03:46] LABS: VBG Ionized Calcium 1.09 mmol/L (1.15-1.35)
[2021-09-11 04:05] LABS: Hematocrit 20.1 % (37.5-50.1); Hemoglobin 6.5 g/dL (12.9-16.9); Lymphocytes # 1.3 K/mcL (0.6-4.6); Mean Corpuscular HGB Conc 32.3 g/dL (31.6-35.5); Mean Corpuscular Hemoglobin 31.7 pg (28.0-33.3); Nucleated Red Blood Cells 0.4 /100 WBC (0); Platelet Count 630 K/mcL (140-400); Red Blood Count 2.05 M/mcL (4.19-5.50); Red Cell Distribution Width 15.1 % (11.5-14.5); White Blood Count 12.7 K/mcL (4.3-11.1)
[2021-09-11] MEDS: Insulin LISPRO 300 UNITS/3 ML VIAL SUBQ SCH ×7 (04:06→23:13)
[2021-09-11] MEDS ORDERED: Acetaminophen IV 1,000 MG/100 ML BAG IVPB ONE ×2 (04:07→20:11)
[2021-09-11 04:14] LABS: Alanine Aminotransferase 18 Units/L (7-52); Albumin/Globulin Ratio 0.8 (1.1-2.2); Alkaline Phosphatase 69 Units/L (34-104); Aspartate Amino Transferase 35 Units/L (13-39); BUN/Creatinine Ratio 40 (6-26); Bilirubin,Total 0.3 mg/dL (0.3-1.0); Blood Urea Nitrogen 42 mg/dL (6-20); Calcium 7.4 mg/dL (8.6-10.3); Carbon Dioxide 28 mEq/L (23-29); Chloride 103 mEq/L (98-107); Globulin 2.4 g/dL (2.4-3.5); Glucose 144 mg/dL (70-105); Magnesium 2.2 mg/dL (1.6-2.6); Osmolality,Calculated 295 (280-300); Phosphorous 3.6 mg/dL (2.7-4.5); Sodium 136 mEq/L (136-145); Total Protein 4.4 g/dL (6.4-8.9); eGFR For African Americans > 60 (> 60); eGFR For Non-African Americans > 60 (> 60)
[2021-09-11 04:54] LABS: ABG Base Excess 1 mEq/L (-2 to 3); ABG HCO3 26 mEq/L (21-27); ABG Oxygen Saturation 91 % (95-98); ABG PCO2 44 mmHg (35-45); ABG PH 7.38 pH Units (7.32-7.45); ABG PO2 63 mmHg (85-104); ABG TCO2 27 mEq/L (20-26); Blood Gas Modality ASSIST CONTROL
[2021-09-11] MEDS: Piperacillin/Tazobactam 3.375 GM in 0.9 % Sodium Chloride Mini Bag 100 ML IVPB SCH ×4 (05:10→21:14)
[2021-09-11] MEDS: *HR* Heparin 5,000 UNIT/ML VIAL SQ SCH ×2 (05:11→17:09)
[2021-09-11] MEDS ORDERED: 0.9 % Sodium Chloride 250 ML ONE ×2 (05:28→12:01)
[2021-09-11] MEDS ORDERED: Calcium Gluconate 1gm/50mL 1 GM/50 ML BAG IVPB ONE (05:46)
[2021-09-11 06:08] LABS: Eosinophils # 0.5 K/mcL (0.0-0.6); Neutrophils # 9.9 K/mcL (1.6-8.9)
[2021-09-11] MEDS ORDERED: Albumin Human 5% 12.5 GM/250 ML IV.SOLN ONE (06:35)
[2021-09-11] MEDS ORDERED: Albumin Human 5% 12.5 GM/250 ML IV.SOLN IVPB ONE (06:35)
[2021-09-11] MEDS: Chlorhexidine Rinse 15 ML MOUTHWASH MM SCH ×2 (08:43→20:02)
[2021-09-11] MEDS: Pantoprazole 40 MG VIAL IVP SCH (08:44)
[2021-09-11] MEDS: Micafungin 100 MG in 0.9 % Sodium Chloride Mini Bag 100 ML IVPB SCH (08:44)
[2021-09-11] MEDS: Vancomycin 1,500 MG/265 ML IV.SOLN IVPB SCH (08:49)
[2021-09-11] MEDS: Phenylephrine 20 MG in 0.9 % Sodium Chloride 250 ML IVC SCH (10:32)
[2021-09-11 11:35] LABS: Hematocrit 21.4 % (37.5-50.1); Hemoglobin 6.8 g/dL (12.9-16.9)
[2021-09-11 12:02] LABS: Adenovirus Not Detected (Not Detect); Bordetella Pertussis Not Detected (Not Detect); Chlamydophila pneumoniae Not Detected (Not Detect); Coronavirus 229E Not Detected (Not Detect); Coronavirus HKU1 Not Detected (Not Detect); Coronavirus NL63 Not Detected (Not Detect); Coronavirus OC43 Not Detected (Not Detect); Human Metapneumovirus Not Detected (Not Detect); Human Rhinovirus/Enterovirus Not Detected (Not Detect); Influenza A Subtype 2009 H1 Not Detected (Not Detect); Influenza B Not Detected (Not Detect); Mycoplasma pneumoniae Not Detected (Not Detect); Parainfluenza Virus 1 Not Detected (Not Detect); Parainfluenza Virus 2 Not Detected (Not Detect); Parainfluenza Virus 3 Not Detected (Not Detect); Parainfluenza Virus 4 Not Detected (Not Detect); Respiratory Syncytial Virus Not Detected (Not Detect); SARS-CoV-2 Not Detected (Not Detect)
[2021-09-11 15:09] LABS: Hematocrit 24.6 % (37.5-50.1); Hemoglobin 7.6 g/dL (12.9-16.9)
[2021-09-11] MEDS ORDERED: Acetaminophen IV 500 MG/50 ML BAG IVPB ONE (15:30)
[2021-09-11] MEDS ORDERED: [UNRECOGNIZED DRUG - NUTRITION] IVC SCH (17:00)
[2021-09-11] MEDS: Vancomycin 1,750 MG/517.5 ML IV.SOLN IVPB SCH (21:14)
[2021-09-11] MEDS: Cisatracurium 200 MG in 0.9 % Sodium Chloride 80 ML IVC SCH (22:40)
[2021-09-11] MEDS: 0.9 % Sodium Chloride 1,000 ML IVC SCH (22:40)
[2021-09-12] MEDS: Ipratropium/Albuterol Neb 3 ML IH PRN (00:05)
[2021-09-12] MEDS: FentaNYL (PF) 2,500 MCG/50 ML IV.SOLN IVC SCH ×3 (00:53→20:59)
[2021-09-12] MEDS: Artificial Tears SOLN 15 ML BOTTLE BOTH EYES SCH ×6 (03:31→23:20)
[2021-09-12] MEDS: Insulin LISPRO 300 UNITS/3 ML VIAL SUBQ SCH ×6 (03:33→23:20)
[2021-09-12 03:41] LABS: White Blood Count 10.5 K/mcL (4.3-11.1)
[2021-09-12 03:42] LABS: Hematocrit 24.3 % (37.5-50.1); Hemoglobin 7.8 g/dL (12.9-16.9); Mean Corpuscular HGB Conc 32.1 g/dL (31.6-35.5); Mean Corpuscular Hemoglobin 31.1 pg (28.0-33.3); Mean Corpuscular Volume 96.8 fL (83.0-100.0); Mean Platelet Volume 10.5 fL (9.4-12.4); Monocytes # 1.1 K/mcL (0.0-1.3); Nucleated Red Blood Cells 0.4 /100 WBC (0); Platelet Count 631 K/mcL (140-400); Red Blood Count 2.51 M/mcL (4.19-5.50); Red Cell Distribution Width 16.3 % (11.5-14.5)
[2021-09-12 03:49] LABS: VBG Ionized Calcium 1.17 mmol/L (1.15-1.35)
[2021-09-12 04:06] LABS: Alanine Aminotransferase 23 Units/L (7-52); Albumin 2.1 g/dL (3.5-5.7); Albumin/Globulin Ratio 0.8 (1.1-2.2); Alkaline Phosphatase 144 Units/L (34-104); Aspartate Amino Transferase 38 Units/L (13-39); BUN/Creatinine Ratio 42 (6-26); Bilirubin,Total 0.6 mg/dL (0.3-1.0); Blood Urea Nitrogen 36 mg/dL (6-20); Calcium 7.5 mg/dL (8.6-10.3); Carbon Dioxide 26 mEq/L (23-29); Chloride 104 mEq/L (98-107); Globulin 2.8 g/dL (2.4-3.5); Glucose 126 mg/dL (70-105); Magnesium 2.3 mg/dL (1.6-2.6); Osmolality,Calculated 290 (280-300); Phosphorous 3.7 mg/dL (2.7-4.5); Potassium 4.1 mEq/L (3.5-5.1); Sodium 135 mEq/L (136-145); Total Protein 4.9 g/dL (6.4-8.9); eGFR For African Americans > 60 (> 60); eGFR For Non-African Americans > 60 (> 60)
[2021-09-12 04:11] LABS: ABG Base Excess -1 mEq/L (-2 to 3); ABG HCO3 26 mEq/L (21-27); ABG Oxygen Saturation 92 % (95-98); ABG PCO2 54 mmHg (35-45); ABG PO2 70 mmHg (85-104); ABG TCO2 28 mEq/L (20-26); Blood Gas VT 500 cc
[2021-09-12] MEDS ORDERED: Acetaminophen IV 1,000 MG/100 ML BAG IVPB ONE (04:11)
[2021-09-12 04:34] LABS: Eosinophils # 0.6 K/mcL (0.0-0.6); Lymphocytes # 0.6 K/mcL (0.6-4.6); Platelet Estimate Increased (Normal); Toxic Granulation Present (Not Present)
[2021-09-12 04:35] LABS: Large Platelets Present (Not Present)
[2021-09-12] MEDS: Piperacillin/Tazobactam 3.375 GM in 0.9 % Sodium Chloride Mini Bag 100 ML IVPB SCH ×3 (04:48→20:03)
[2021-09-12] MEDS: *HR* Heparin 5,000 UNIT/ML VIAL SQ SCH ×2 (04:48→17:01)
[2021-09-12] MEDS: Chlorhexidine Rinse 15 ML MOUTHWASH MM SCH ×2 (08:10→20:03)
[2021-09-12] MEDS: Pantoprazole 40 MG VIAL IVP SCH (08:11)
[2021-09-12] MEDS: Micafungin 100 MG in 0.9 % Sodium Chloride Mini Bag 100 ML IVPB SCH (08:11)
[2021-09-12] MEDS: *HR* Midazolam HCl 2 MG/2 ML VIAL IVP PRN ×2 (08:18→12:15)
[2021-09-12] MEDS: Vancomycin 1,750 MG/517.5 ML IV.SOLN IVPB SCH ×2 (08:38→20:04)
[2021-09-12] MEDS: Phenylephrine 20 MG in 0.9 % Sodium Chloride 250 ML IVC SCH (11:11)
[2021-09-12] MEDS ORDERED: CLINIMIX E IVC SCH (17:00)
[2021-09-12] MEDS ORDERED: MVI IVC SCH (17:00)
[2021-09-12] MEDS ORDERED: AMINO ACIDS 10% IVC SCH (17:00)
[2021-09-12] MEDS ORDERED: [UNRECOGNIZED DRUG - OTHER] IVC SCH (17:00)
[2021-09-12] MEDS: Cisatracurium 200 MG in 0.9 % Sodium Chloride 80 ML IVC SCH (22:39)
[2021-09-12] MEDS: 0.9 % Sodium Chloride 1,000 ML IVC SCH (22:39)
[2021-09-13] MEDS: Insulin LISPRO 300 UNITS/3 ML VIAL SUBQ SCH ×6 (03:47→23:26)
[2021-09-13 03:53] LABS: Basophils # 0.1 K/mcL (0.0-0.2); Basophils % 0.8 %; Eosinophils # 0.5 K/mcL (0.0-0.6); Eosinophils % 3.8 %; Hematocrit 24.9 % (37.5-50.1); Hemoglobin 7.7 g/dL (12.9-16.9); Immature Granulocytes % 12.8 % (0-4); Lymphocytes # 1.1 K/mcL (0.6-4.6); Lymphocytes % 8.6 %; Mean Corpuscular HGB Conc 30.9 g/dL (31.6-35.5); Mean Corpuscular Hemoglobin 30.7 pg (28.0-33.3); Mean Corpuscular Volume 99.2 fL (83.0-100.0); Mean Platelet Volume 10.3 fL (9.4-12.4); Monocytes # 1.6 K/mcL (0.0-1.3); Monocytes % 12.4 %; Neutrophils # 7.7 K/mcL (1.6-8.9); Nucleated Red Blood Cells 0.7 /100 WBC (0); Platelet Count 615 K/mcL (140-400); Red Blood Count 2.51 M/mcL (4.19-5.50); Red Cell Distribution Width 16.1 % (11.5-14.5); Segmented Neutrophils % 61.6 %; White Blood Count 12.5 K/mcL (4.3-11.1)
[2021-09-13 03:53] LABS: VBG Ionized Calcium 1.21 mmol/L (1.15-1.35)
[2021-09-13 04:05] LABS: ABG Base Excess -1 mEq/L (-2 to 3); ABG HCO3 26 mEq/L (21-27); ABG Oxygen Saturation 94 % (95-98); ABG PCO2 50 mmHg (35-45); ABG PH 7.32 pH Units (7.32-7.45); ABG PO2 80 mmHg (85-104); ABG TCO2 27 mEq/L (20-26); Blood Gas VT 500 cc
[2021-09-13 04:30] LABS: Alanine Aminotransferase 23 Units/L (7-52); Albumin 2.1 g/dL (3.5-5.7); Albumin/Globulin Ratio 0.7 (1.1-2.2); Alkaline Phosphatase 183 Units/L (34-104); Aspartate Amino Transferase 31 Units/L (13-39); BUN/Creatinine Ratio 36 (6-26); Bilirubin,Total 0.7 mg/dL (0.3-1.0); Blood Urea Nitrogen 28 mg/dL (6-20); Calcium 7.7 mg/dL (8.6-10.3); Carbon Dioxide 25 mEq/L (23-29); Chloride 104 mEq/L (98-107); Globulin 2.9 g/dL (2.4-3.5); Glucose 121 mg/dL (70-105); Magnesium 2.3 mg/dL (1.6-2.6); Osmolality,Calculated 285 (280-300); Phosphorous 3.3 mg/dL (2.7-4.5); Potassium 4.6 mEq/L (3.5-5.1); Sodium 134 mEq/L (136-145); Vancomycin,Trough 21 mcg/mL (5-10); eGFR For African Americans > 60 (> 60); eGFR For Non-African Americans > 60 (> 60)
[2021-09-13] MEDS: Artificial Tears SOLN 15 ML BOTTLE BOTH EYES SCH ×6 (04:37→23:25)
[2021-09-13 04:41] LABS: Platelet Estimate Increased (Normal)
[2021-09-13] MEDS: *HR* Heparin 5,000 UNIT/ML VIAL SQ SCH ×2 (05:09→17:00)
[2021-09-13] MEDS: Piperacillin/Tazobactam 3.375 GM in 0.9 % Sodium Chloride Mini Bag 100 ML IVPB SCH ×3 (05:10→20:10)
[2021-09-13] MEDS: FentaNYL (PF) 2,500 MCG/50 ML IV.SOLN IVC SCH ×2 (07:05→17:05)
[2021-09-13] MEDS ORDERED: Furosemide 40 MG/4 ML VIAL IVP ONE ×2 (07:20→21:00)
[2021-09-13] MEDS: Chlorhexidine Rinse 15 ML MOUTHWASH MM SCH ×2 (08:49→20:09)
[2021-09-13] MEDS: Micafungin 100 MG in 0.9 % Sodium Chloride Mini Bag 100 ML IVPB SCH (08:49)
[2021-09-13] MEDS: Pantoprazole 40 MG VIAL IVP SCH (08:49)
[2021-09-13] MEDS: Phenylephrine 20 MG in 0.9 % Sodium Chloride 250 ML IVC SCH (08:51)
[2021-09-13] MEDS: Vancomycin 1,750 MG/517.5 ML IV.SOLN IVPB SCH ×2 (09:22→20:10)
[2021-09-13] MEDS ORDERED: AMINO ACIDS 10% IVC SCH (17:00)
[2021-09-13] MEDS ORDERED: CLINIMIX E IVC SCH (17:00)
[2021-09-13] MEDS: 0.9 % Sodium Chloride 1,000 ML IVC SCH (23:27)
[2021-09-13] MEDS: Cisatracurium 200 MG in 0.9 % Sodium Chloride 80 ML IVC SCH (23:27)
[2021-09-14] MEDS: FentaNYL (PF) 2,500 MCG/50 ML IV.SOLN IVC SCH ×2 (03:26→13:39)
[2021-09-14 03:27] LABS: VBG Ionized Calcium 1.09 mmol/L (1.15-1.35)
[2021-09-14 03:30] LABS: Hemoglobin 7.7 g/dL (12.9-16.9); Mean Corpuscular Hemoglobin 34.2 pg (28.0-33.3); Mean Corpuscular Volume 97.8 fL (83.0-100.0); Mean Platelet Volume 10.6 fL (9.4-12.4); Nucleated Red Blood Cells 0.7 /100 WBC (0); Platelet Count 599 K/mcL (140-400); Red Blood Count 2.25 M/mcL (4.19-5.50); Red Cell Distribution Width 15.5 % (11.5-14.5); White Blood Count 10.3 K/mcL (4.3-11.1)
[2021-09-14 03:54] LABS: Alanine Aminotransferase 24 Units/L (7-52); Albumin 2.1 g/dL (3.5-5.7); Albumin/Globulin Ratio 0.8 (1.1-2.2); Alkaline Phosphatase 186 Units/L (34-104); Aspartate Amino Transferase 29 Units/L (13-39); BUN/Creatinine Ratio 36 (6-26); Blood Urea Nitrogen 25 mg/dL (6-20); Calcium 7.6 mg/dL (8.6-10.3); Carbon Dioxide 28 mEq/L (23-29); Chloride 97 mEq/L (98-107); Globulin 2.6 g/dL (2.4-3.5); Glucose 129 mg/dL (70-105); Magnesium 1.9 mg/dL (1.6-2.6); Osmolality,Calculated 274 (280-300); Potassium 3.6 mEq/L (3.5-5.1); Sodium 129 mEq/L (136-145); Total Protein 4.7 g/dL (6.4-8.9); eGFR For African Americans > 60 (> 60); eGFR For Non-African Americans > 60 (> 60)
[2021-09-14] MEDS: Artificial Tears SOLN 15 ML BOTTLE BOTH EYES SCH ×5 (04:00→19:50)
[2021-09-14] MEDS: Insulin LISPRO 300 UNITS/3 ML VIAL SUBQ SCH ×5 (04:01→19:35)
[2021-09-14 04:25] LABS: ABG Base Excess 3 mEq/L (-2 to 3); ABG HCO3 28 mEq/L (21-27); ABG Oxygen Saturation 98 % (95-98); ABG PCO2 45 mmHg (35-45); ABG PO2 109 mmHg (85-104); ABG TCO2 29 mEq/L (20-26); Blood Gas VT 500 cc
[2021-09-14 04:37] LABS: Eosinophils # 0.4 K/mcL (0.0-0.6); Lymphocytes # 1.4 K/mcL (0.6-4.6); Monocytes # 0.6 K/mcL (0.0-1.3); Neutrophils # 7.8 K/mcL (1.6-8.9); Platelet Estimate Increased (Normal); Toxic Granulation Present (Not Present)
[2021-09-14] MEDS: Piperacillin/Tazobactam 3.375 GM in 0.9 % Sodium Chloride Mini Bag 100 ML IVPB SCH ×3 (04:58→19:35)
[2021-09-14] MEDS: Calcium Gluconate 1gm/50mL 1 GM/50 ML BAG IVPB SCH ×2 (04:58→05:38)
[2021-09-14] MEDS: *HR* Heparin 5,000 UNIT/ML VIAL SQ SCH ×2 (05:00→16:21)
[2021-09-14] MEDS: Chlorhexidine Rinse 15 ML MOUTHWASH MM SCH ×2 (07:43→19:35)
[2021-09-14] MEDS: Pantoprazole 40 MG VIAL IVP SCH (07:43)
[2021-09-14] MEDS: Micafungin 100 MG in 0.9 % Sodium Chloride Mini Bag 100 ML IVPB SCH (07:43)
[2021-09-14] MEDS: Vancomycin 1,750 MG/517.5 ML IV.SOLN IVPB SCH ×2 (07:45→19:35)
[2021-09-14] MEDS: Phenylephrine 20 MG in 0.9 % Sodium Chloride 250 ML IVC SCH (10:55)
[2021-09-14] MEDS: Albumin 25% 25gram/100mL 25 GM/100 ML IV.SOLN IVPB SCH (16:21)
[2021-09-14] MEDS: Furosemide 40 MG/4 ML VIAL IVP SCH (16:21)
[2021-09-14] MEDS ORDERED: CLINIMIX E IVC SCH (17:00)
[2021-09-14] MEDS ORDERED: AMINO ACIDS 10% IVC SCH (17:00)
[2021-09-14 17:35] LABS: BUN/Creatinine Ratio 38 (6-26); Blood Urea Nitrogen 26 mg/dL (6-20); Calcium 7.9 mg/dL (8.6-10.3); Carbon Dioxide 27 mEq/L (23-29); Chloride 98 mEq/L (98-107); Glucose 134 mg/dL (70-105); Osmolality,Calculated 281 (280-300); Potassium 3.8 mEq/L (3.5-5.1); Sodium 132 mEq/L (136-145); eGFR For African Americans > 60 (> 60); eGFR For Non-African Americans > 60 (> 60)
[2021-09-15] MEDS: FentaNYL (PF) 2,500 MCG/50 ML IV.SOLN IVC SCH ×3 (00:04→21:34)
[2021-09-15] MEDS: Artificial Tears SOLN 15 ML BOTTLE BOTH EYES SCH ×7 (00:05→23:39)
[2021-09-15] MEDS: Insulin LISPRO 300 UNITS/3 ML VIAL SUBQ SCH ×7 (00:05→23:37)
[2021-09-15] MEDS: Albumin 25% 25gram/100mL 25 GM/100 ML IV.SOLN IVPB SCH ×4 (00:05→23:38)
[2021-09-15 03:45] LABS: ABG Base Excess 3 mEq/L (-2 to 3); ABG HCO3 28 mEq/L (21-27); ABG Oxygen Saturation 94 % (95-98); ABG PCO2 41 mmHg (35-45); ABG PH 7.44 pH Units (7.32-7.45); ABG PO2 70 mmHg (85-104); ABG TCO2 29 mEq/L (20-26); Blood Gas VT 500 cc
[2021-09-15 04:03] LABS: Hematocrit 20.4 % (37.5-50.1); Mean Corpuscular HGB Conc 34.3 g/dL (31.6-35.5); Mean Corpuscular Hemoglobin 33.8 pg (28.0-33.3); Mean Corpuscular Volume 98.6 fL (83.0-100.0); Mean Platelet Volume 10.8 fL (9.4-12.4); Nucleated Red Blood Cells 0.8 /100 WBC (0); Platelet Count 583 K/mcL (140-400); Red Blood Count 2.07 M/mcL (4.19-5.50); Red Cell Distribution Width 15.3 % (11.5-14.5); White Blood Count 8.8 K/mcL (4.3-11.1)
[2021-09-15 04:06] LABS: VBG Ionized Calcium 1.01 mmol/L (1.15-1.35)
[2021-09-15 04:30] LABS: Platelet Estimate Marked Increase (Normal)
[2021-09-15 04:32] LABS: Lymphocytes # 0.5 K/mcL (0.6-4.6); Neutrophils # 7.6 K/mcL (1.6-8.9); Toxic Granulation Present (Not Present)
[2021-09-15 05:20] LABS: Alanine Aminotransferase 21 Units/L (7-52); Albumin 2.4 g/dL (3.5-5.7); Albumin/Globulin Ratio 0.9 (1.1-2.2); Alkaline Phosphatase 158 Units/L (34-104); Aspartate Amino Transferase 23 Units/L (13-39); BUN/Creatinine Ratio 38 (6-26); Blood Urea Nitrogen 27 mg/dL (6-20); Calcium 7.8 mg/dL (8.6-10.3); Carbon Dioxide 26 mEq/L (23-29); Chloride 96 mEq/L (98-107); Globulin 2.6 g/dL (2.4-3.5); Glucose 121 mg/dL (70-105); Magnesium 1.8 mg/dL (1.6-2.6); Osmolality,Calculated 272 (280-300); Phosphorous 2.7 mg/dL (2.7-4.5); Potassium 3.4 mEq/L (3.5-5.1); Sodium 128 mEq/L (136-145); eGFR For African Americans > 60 (> 60); eGFR For Non-African Americans > 60 (> 60)
[2021-09-15] MEDS: *HR* Heparin 5,000 UNIT/ML VIAL SQ SCH ×2 (05:35→17:37)
[2021-09-15] MEDS: Piperacillin/Tazobactam 3.375 GM in 0.9 % Sodium Chloride Mini Bag 100 ML IVPB SCH ×2 (05:35→12:41)
[2021-09-15] MEDS: Calcium Gluconate 1gm/50mL 1 GM/50 ML BAG IVPB SCH ×2 (05:36→06:45)
[2021-09-15] MEDS: 0.9 % Sodium Chloride 1,000 ML IVC SCH ×2 (06:49→23:46)
[2021-09-15] MEDS: Midazolam HCl 50 MG/50 ML IV.SOLN IVC SCH ×2 (06:49→19:48)
[2021-09-15] MEDS: Cisatracurium 200 MG in 0.9 % Sodium Chloride 80 ML IVC SCH ×2 (06:49→23:46)
[2021-09-15] MEDS: Chlorhexidine Rinse 15 ML MOUTHWASH MM SCH ×2 (08:26→20:19)
[2021-09-15] MEDS: Furosemide 40 MG/4 ML VIAL IVP SCH ×2 (08:26→17:36)
[2021-09-15] MEDS: Pantoprazole 40 MG VIAL IVP SCH (08:27)
[2021-09-15] MEDS: Micafungin 100 MG in 0.9 % Sodium Chloride Mini Bag 100 ML IVPB SCH (08:29)
[2021-09-15] MEDS: Vancomycin 1,750 MG/517.5 ML IV.SOLN IVPB SCH ×2 (08:31→20:18)
[2021-09-15] MEDS ORDERED: MVI IVC SCH (17:00)
[2021-09-15] MEDS ORDERED: AMINO ACIDS 10% IVC SCH (17:00)
[2021-09-15] MEDS ORDERED: CLINIMIX E IVC SCH (17:00)
[2021-09-15] MEDS ORDERED: [UNRECOGNIZED DRUG - OTHER] IVC SCH (17:00)
[2021-09-15] MEDS: Phenylephrine 20 MG in 0.9 % Sodium Chloride 250 ML IVC SCH (19:18)
[2021-09-15] MEDS ORDERED: Acetaminophen IV 500 MG/50 ML BAG IVPB ONE (20:16)
[2021-09-16] MEDS: Artificial Tears SOLN 15 ML BOTTLE BOTH EYES SCH ×6 (03:42→23:21)
[2021-09-16] MEDS: Insulin LISPRO 300 UNITS/3 ML VIAL SUBQ SCH ×6 (03:50→23:21)
[2021-09-16 04:11] LABS: VBG Ionized Calcium 1.07 mmol/L (1.15-1.35)
[2021-09-16 04:22] LABS: ABG Base Excess 3 mEq/L (-2 to 3); ABG HCO3 27 mEq/L (21-27); ABG Oxygen Saturation 95 % (95-98); ABG PCO2 38 mmHg (35-45); ABG PH 7.46 pH Units (7.32-7.45); ABG PO2 71 mmHg (85-104); ABG TCO2 28 mEq/L (20-26); Blood Gas Modality ASSIST CONTROL; Blood Gas VT 500 cc
[2021-09-16 04:29] LABS: Hematocrit 19.8 % (37.5-50.1); Mean Corpuscular HGB Conc 35.4 g/dL (31.6-35.5); Mean Corpuscular Hemoglobin 34.5 pg (28.0-33.3); Mean Corpuscular Volume 97.5 fL (83.0-100.0); Mean Platelet Volume 10.7 fL (9.4-12.4); Nucleated Red Blood Cells 0.6 /100 WBC (0); Platelet Count 586 K/mcL (140-400); Red Blood Count 2.03 M/mcL (4.19-5.50); Red Cell Distribution Width 15.2 % (11.5-14.5); White Blood Count 9.1 K/mcL (4.3-11.1)
[2021-09-16 04:54] LABS: Albumin 2.9 g/dL (3.5-5.7); Albumin/Globulin Ratio 1.3 (1.1-2.2); Alkaline Phosphatase 148 Units/L (34-104); BUN/Creatinine Ratio 52 (6-26); Bilirubin,Direct 0.6 mg/dL (0.0-0.2); Bilirubin,Indirect 0.6 mg/dL (0.0-1.0); Bilirubin,Total 1.2 mg/dL (0.3-1.0); Blood Urea Nitrogen 26 mg/dL (6-20); Calcium 7.8 mg/dL (8.6-10.3); Carbon Dioxide 26 mEq/L (23-29); Chloride 89 mEq/L (98-107); Globulin 2.2 g/dL (2.4-3.5); Glucose 95 mg/dL (70-105); Magnesium 1.7 mg/dL (1.6-2.6); Osmolality,Calculated 259 (280-300); Phosphorous 3.4 mg/dL (2.7-4.5); Potassium 3.2 mEq/L (3.5-5.1); Sodium 122 mEq/L (136-145); Total Protein 5.1 g/dL (6.4-8.9); eGFR For African Americans > 60 (> 60); eGFR For Non-African Americans > 60 (> 60)
[2021-09-16 05:12] LABS: Alanine Aminotransferase 21 Units/L (7-52); Aspartate Amino Transferase 24 Units/L (13-39)
[2021-09-16 05:14] LABS: Eosinophils # 1.1 K/mcL (0.0-0.6); Lymphocytes # 1.3 K/mcL (0.6-4.6); Monocytes # 0.2 K/mcL (0.0-1.3); Neutrophils # 6.2 K/mcL (1.6-8.9); Platelet Estimate Increased (Normal); Toxic Granulation Present (Not Present)
[2021-09-16] MEDS: *HR* Heparin 5,000 UNIT/ML VIAL SQ SCH ×2 (05:18→18:02)
[2021-09-16] MEDS: Calcium Gluconate 1gm/50mL 1 GM/50 ML BAG IVPB PRN (07:13)
[2021-09-16] MEDS: Pantoprazole 40 MG VIAL IVP SCH (07:51)
[2021-09-16] MEDS: Chlorhexidine Rinse 15 ML MOUTHWASH MM SCH ×2 (07:51→20:34)
[2021-09-16] MEDS: Micafungin 100 MG in 0.9 % Sodium Chloride Mini Bag 100 ML IVPB SCH (07:52)
[2021-09-16] MEDS: Albumin 25% 25gram/100mL 25 GM/100 ML IV.SOLN IVPB SCH (07:52)
[2021-09-16] MEDS: FentaNYL (PF) 2,500 MCG/50 ML IV.SOLN IVC SCH ×2 (07:53→20:34)
[2021-09-16] MEDS: Vancomycin 1,750 MG/517.5 ML IV.SOLN IVPB SCH ×2 (08:58→20:49)
[2021-09-16] MEDS: Furosemide 40 MG/4 ML VIAL IVP SCH (08:58)
[2021-09-16] MEDS: Phenylephrine 20 MG in 0.9 % Sodium Chloride 250 ML IVC SCH (10:41)
[2021-09-16 14:11] LABS: Bilirubin,Urine Negative (Negative); Blood,Urine Negative (Negative); Clarity,Urine Clear (Clear); Color,Urine Yellow (Yellow); Glucose,Urine (UA) Normal (Normal); Ketones,Urine Negative (Negative); Leukocyte Esterase,Urine Negative (Negative); Nitrite,Urine Negative (Negative); Protein,Urine Trace mg/dL (Neg-Trace); Specific Gravity,Urine 1.019 (1.010-1.025); Urobilinogen,Urine Normal (Normal)
[2021-09-16] MEDS ORDERED: [UNRECOGNIZED DRUG - NUTRITION] IVC SCH (17:00)
[2021-09-16 17:37] LABS: BUN/Creatinine Ratio 42 (6-26); Blood Urea Nitrogen 30 mg/dL (6-20); Calcium 8.6 mg/dL (8.6-10.3); Carbon Dioxide 29 mEq/L (23-29); Chloride 101 mEq/L (98-107); Glucose 139 mg/dL (70-105); Osmolality,Calculated 290 (280-300); Potassium 3.4 mEq/L (3.5-5.1); Sodium 136 mEq/L (136-145); eGFR For African Americans > 60 (> 60); eGFR For Non-African Americans > 60 (> 60)
[2021-09-16 19:51] LABS: BUN/Creatinine Ratio 45 (6-26); Blood Urea Nitrogen 32 mg/dL (6-20); Calcium 8.5 mg/dL (8.6-10.3); Carbon Dioxide 26 mEq/L (23-29); Chloride 103 mEq/L (98-107); Glucose 142 mg/dL (70-105); Osmolality,Calculated 297 (280-300); Potassium 4.8 mEq/L (3.5-5.1); Sodium 139 mEq/L (136-145); eGFR For African Americans > 60 (> 60); eGFR For Non-African Americans > 60 (> 60)
[2021-09-16] MEDS: Midazolam HCl 50 MG/50 ML IV.SOLN IVC SCH (20:50)
[2021-09-16] MEDS: Ipratropium/Albuterol Neb 3 ML IH PRN (22:18)
[2021-09-16] MEDS: Cisatracurium 200 MG in 0.9 % Sodium Chloride 80 ML IVC SCH (23:28)
[2021-09-16] MEDS: 0.9 % Sodium Chloride 1,000 ML IVC SCH (23:28)
[2021-09-17] MEDS: Insulin LISPRO 300 UNITS/3 ML VIAL SUBQ SCH ×6 (03:23→23:42)
[2021-09-17 04:13] LABS: ABG Base Excess 4 mEq/L (-2 to 3); ABG HCO3 29 mEq/L (21-27); ABG Oxygen Saturation 93 % (95-98); ABG PCO2 46 mmHg (35-45); ABG PH 7.41 pH Units (7.32-7.45); ABG PO2 66 mmHg (85-104); ABG TCO2 31 mEq/L (20-26); Blood Gas Modality ASSIST CONTROL; Blood Gas VT 500 cc
[2021-09-17] MEDS: Artificial Tears SOLN 15 ML BOTTLE BOTH EYES SCH ×6 (05:15→23:41)
[2021-09-17] MEDS: *HR* Heparin 5,000 UNIT/ML VIAL SQ SCH ×2 (05:18→17:50)
[2021-09-17 05:59] LABS: VBG Ionized Calcium 1.11 mmol/L (1.15-1.35)
[2021-09-17 06:03] LABS: Basophils # 0.1 K/mcL (0.0-0.2); Basophils % 0.9 %; Eosinophils # 0.4 K/mcL (0.0-0.6); Eosinophils % 2.7 %; Hematocrit 23.7 % (37.5-50.1); Hemoglobin 7.4 g/dL (12.9-16.9); Immature Granulocytes % 6.2 % (0-4); Lymphocytes # 0.9 K/mcL (0.6-4.6); Lymphocytes % 6.8 %; Mean Corpuscular HGB Conc 31.2 g/dL (31.6-35.5); Mean Corpuscular Hemoglobin 30.6 pg (28.0-33.3); Mean Corpuscular Volume 97.9 fL (83.0-100.0); Mean Platelet Volume 10.6 fL (9.4-12.4); Monocytes # 1.2 K/mcL (0.0-1.3); Monocytes % 9.1 %; Nucleated Red Blood Cells 0.2 /100 WBC (0); Platelet Count 718 K/mcL (140-400); Red Blood Count 2.42 M/mcL (4.19-5.50); Red Cell Distribution Width 15.1 % (11.5-14.5); Segmented Neutrophils % 74.3 %
[2021-09-17 06:09] LABS: Neutrophils # 9.7 K/mcL (1.6-8.9)
[2021-09-17 06:27] LABS: Alanine Aminotransferase 33 Units/L (7-52); Albumin 3.1 g/dL (3.5-5.7); Albumin/Globulin Ratio 1.1 (1.1-2.2); Alkaline Phosphatase 211 Units/L (34-104); Aspartate Amino Transferase 36 Units/L (13-39); BUN/Creatinine Ratio 45 (6-26); Bilirubin,Direct 0.5 mg/dL (0.0-0.2); Bilirubin,Indirect 0.6 mg/dL (0.0-1.0); Bilirubin,Total 1.1 mg/dL (0.3-1.0); Blood Urea Nitrogen 30 mg/dL (6-20); Calcium 8.6 mg/dL (8.6-10.3); Carbon Dioxide 29 mEq/L (23-29); Chloride 101 mEq/L (98-107); Globulin 2.7 g/dL (2.4-3.5); Glucose 126 mg/dL (70-105); Osmolality,Calculated 290 (280-300); Phosphorous 3.3 mg/dL (2.7-4.5); Platelet Estimate Marked Increase (Normal); Potassium 3.7 mEq/L (3.5-5.1); Sodium 136 mEq/L (136-145); Total Protein 5.8 g/dL (6.4-8.9); eGFR For African Americans > 60 (> 60); eGFR For Non-African Americans > 60 (> 60)
[2021-09-17 06:28] LABS: Anisocytosis 1+ (Not Present); Hypochromasia Present (Not Present); Reactive Lymphocytes Present (Not Present); Toxic Granulation Present (Not Present)
[2021-09-17] MEDS ORDERED: Acetaminophen 325 MG TABLET PO PRN (07:35)
[2021-09-17] MEDS: FentaNYL (PF) 2,500 MCG/50 ML IV.SOLN IVC SCH ×2 (07:37→20:02)
[2021-09-17] MEDS ORDERED: Isovue-370 500 ML BOTTLE IVP ONE ×2 (07:45)
[2021-09-17] MEDS: Pantoprazole 40 MG VIAL IVP SCH (07:50)
[2021-09-17] MEDS: Chlorhexidine Rinse 15 ML MOUTHWASH MM SCH ×2 (07:50→20:23)
[2021-09-17] MEDS: Micafungin 100 MG in 0.9 % Sodium Chloride Mini Bag 100 ML IVPB SCH (07:50)
[2021-09-17] MEDS: Phenylephrine 20 MG in 0.9 % Sodium Chloride 250 ML IVC SCH (07:52)
[2021-09-17] MEDS ORDERED: Furosemide 40 MG/4 ML VIAL IVP SCH (09:00)
[2021-09-17] MEDS: Vancomycin 1,750 MG/517.5 ML IV.SOLN IVPB SCH (09:56)
[2021-09-17] MEDS ORDERED: Clinimix 5%-20% SOLUTION 2,000 ML with MVI, adult with vitamin K 10 ML, Sodium Phosph... IV SCH (17:00)
[2021-09-17 17:22] LABS: BUN/Creatinine Ratio 44 (6-26); Blood Urea Nitrogen 30 mg/dL (6-20); Calcium 8.2 mg/dL (8.6-10.3); Carbon Dioxide 30 mEq/L (23-29); Chloride 102 mEq/L (98-107); Glucose 140 mg/dL (70-105); Osmolality,Calculated 290 (280-300); Potassium 3.8 mEq/L (3.5-5.1); Sodium 136 mEq/L (136-145); eGFR For African Americans > 60 (> 60); eGFR For Non-African Americans > 60 (> 60)
[2021-09-17] MEDS: Potassium Chloride 40 MEQ/200 ML BAG IVPB PRN ×2 (17:50→18:55)
[2021-09-17] MEDS: Albumin 25% 12.5gm/50mL 12.5 GM/50 ML IV.SOLN IVPB SCH (18:07)
[2021-09-17] MEDS: Vancomycin 2,000 MG/520 ML IV.SOLN IVPB SCH (20:24)
[2021-09-17] MEDS: Furosemide 20 MG/2 ML VIAL IVP SCH (20:24)
[2021-09-17] MEDS: Midazolam HCl 50 MG/50 ML IV.SOLN IVC SCH (23:41)
[2021-09-18] MEDS ORDERED: Acetaminophen IV 1,000 MG/100 ML BAG IVPB ONE (00:13)
[2021-09-18 04:46] LABS: ABG Base Excess 4 mEq/L (-2 to 3); ABG HCO3 29 mEq/L (21-27); ABG Oxygen Saturation 93 % (95-98); ABG PCO2 44 mmHg (35-45); ABG PH 7.42 pH Units (7.32-7.45); ABG PO2 66 mmHg (85-104); ABG TCO2 30 mEq/L (20-26); Blood Gas VT 500 cc
[2021-09-18 04:51] LABS: VBG Ionized Calcium 1.11 mmol/L (1.15-1.35)
[2021-09-18] MEDS: 0.9 % Sodium Chloride 1,000 ML IVC SCH (05:09)
[2021-09-18] MEDS: Cisatracurium 200 MG in 0.9 % Sodium Chloride 80 ML IVC SCH (05:09)
[2021-09-18] MEDS: Artificial Tears SOLN 15 ML BOTTLE BOTH EYES SCH ×6 (05:10→23:01)
[2021-09-18] MEDS: Insulin LISPRO 300 UNITS/3 ML VIAL SUBQ SCH ×6 (05:10→23:59)
[2021-09-18] MEDS: FentaNYL (PF) 2,500 MCG/50 ML IV.SOLN IVC SCH ×2 (07:05→19:53)
[2021-09-18] MEDS: *HR* Heparin 5,000 UNIT/ML VIAL SQ SCH ×2 (07:05→16:31)
[2021-09-18] MEDS: Albumin 25% 12.5gm/50mL 12.5 GM/50 ML IV.SOLN IVPB SCH ×2 (07:37→19:52)
[2021-09-18] MEDS: Micafungin 100 MG in 0.9 % Sodium Chloride Mini Bag 100 ML IVPB SCH (07:37)
[2021-09-18] MEDS: Chlorhexidine Rinse 15 ML MOUTHWASH MM SCH ×2 (07:38→19:53)
[2021-09-18] MEDS: Pantoprazole 40 MG VIAL IVP SCH (07:38)
[2021-09-18] MEDS: Furosemide 20 MG/2 ML VIAL IVP SCH ×2 (07:38→19:53)
[2021-09-18 09:01] LABS: Basophils # 0.1 K/mcL (0.0-0.2); Basophils % 0.5 %; Eosinophils # 0.3 K/mcL (0.0-0.6); Hematocrit 21.9 % (37.5-50.1); Hemoglobin 6.9 g/dL (12.9-16.9); Immature Granulocytes % 4.8 % (0-4); Lymphocytes % 8.3 %; Mean Corpuscular HGB Conc 31.5 g/dL (31.6-35.5); Mean Corpuscular Hemoglobin 30.5 pg (28.0-33.3); Mean Platelet Volume 10.5 fL (9.4-12.4); Monocytes # 1.1 K/mcL (0.0-1.3); Monocytes % 9.2 %; Neutrophils # 8.5 K/mcL (1.6-8.9); Nucleated Red Blood Cells 0.3 /100 WBC (0); Platelet Count 658 K/mcL (140-400); Red Blood Count 2.26 M/mcL (4.19-5.50); Red Cell Distribution Width 15.3 % (11.5-14.5); Segmented Neutrophils % 74.2 %; White Blood Count 11.5 K/mcL (4.3-11.1)
[2021-09-18 09:03] LABS: Mean Corpuscular Volume 96.9 fL (83.0-100.0)
[2021-09-18] MEDS: Vancomycin 2,000 MG/520 ML IV.SOLN IVPB SCH ×2 (09:43→19:54)
[2021-09-18] MEDS: Phenylephrine 20 MG in 0.9 % Sodium Chloride 250 ML IVC SCH (09:44)
[2021-09-18 10:40] LABS: Alanine Aminotransferase 33 Units/L (7-52); Albumin 2.7 g/dL (3.5-5.7); Alkaline Phosphatase 187 Units/L (34-104); Aspartate Amino Transferase 30 Units/L (13-39); BUN/Creatinine Ratio 46 (6-26); Bilirubin,Direct 0.4 mg/dL (0.0-0.2); Bilirubin,Indirect 0.4 mg/dL (0.0-1.0); Bilirubin,Total 0.8 mg/dL (0.3-1.0); Blood Urea Nitrogen 31 mg/dL (6-20); Calcium 8.2 mg/dL (8.6-10.3); Carbon Dioxide 31 mEq/L (23-29); Chloride 103 mEq/L (98-107); Globulin 2.8 g/dL (2.4-3.5); Glucose 141 mg/dL (70-105); Osmolality,Calculated 295 (280-300); Phosphorous 3.4 mg/dL (2.7-4.5); Potassium 3.9 mEq/L (3.5-5.1); Sodium 138 mEq/L (136-145); Total Protein 5.5 g/dL (6.4-8.9); eGFR For African Americans > 60 (> 60); eGFR For Non-African Americans > 60 (> 60)
[2021-09-18] MEDS ORDERED: Clinimix 5%-20% SOLUTION 2,000 ML with MVI, adult with vitamin K 10 ML, ZN/CU/MN/SE 1... IV SCH (17:00)
[2021-09-18] MEDS: Midazolam HCl 50 MG/50 ML IV.SOLN IVC SCH (19:54)
[2021-09-19] MEDS: Cisatracurium 200 MG in 0.9 % Sodium Chloride 80 ML IVC SCH (00:13)
[2021-09-19] MEDS: 0.9 % Sodium Chloride 1,000 ML IVC SCH (00:20)
[2021-09-19] MEDS: Artificial Tears SOLN 15 ML BOTTLE BOTH EYES SCH ×6 (03:05→23:51)
[2021-09-19] MEDS: Insulin LISPRO 300 UNITS/3 ML VIAL SUBQ SCH ×6 (03:25→23:51)
[2021-09-19 03:32] LABS: Basophils # 0.1 K/mcL (0.0-0.2); Basophils % 0.6 %; Eosinophils # 0.4 K/mcL (0.0-0.6); Hematocrit 21.8 % (37.5-50.1); Hemoglobin 6.7 g/dL (12.9-16.9); Lymphocytes # 1.2 K/mcL (0.6-4.6); Lymphocytes % 11.6 %; Mean Corpuscular HGB Conc 30.7 g/dL (31.6-35.5); Mean Corpuscular Hemoglobin 30.2 pg (28.0-33.3); Mean Corpuscular Volume 98.2 fL (83.0-100.0); Mean Platelet Volume 10.3 fL (9.4-12.4); Monocytes # 1.1 K/mcL (0.0-1.3); Neutrophils # 6.9 K/mcL (1.6-8.9); Nucleated Red Blood Cells 0.3 /100 WBC (0); Platelet Count 601 K/mcL (140-400); Red Blood Count 2.22 M/mcL (4.19-5.50); Red Cell Distribution Width 15.2 % (11.5-14.5); Segmented Neutrophils % 67.8 %; White Blood Count 10.2 K/mcL (4.3-11.1)
[2021-09-19 03:53] LABS: Alanine Aminotransferase 27 Units/L (7-52); Albumin 2.8 g/dL (3.5-5.7); Alkaline Phosphatase 166 Units/L (34-104); Aspartate Amino Transferase 24 Units/L (13-39); BUN/Creatinine Ratio 44 (6-26); Bilirubin,Total 0.8 mg/dL (0.3-1.0); Blood Urea Nitrogen 28 mg/dL (6-20); Calcium 8.2 mg/dL (8.6-10.3); Carbon Dioxide 32 mEq/L (23-29); Chloride 102 mEq/L (98-107); Globulin 2.8 g/dL (2.4-3.5); Glucose 113 mg/dL (70-105); Osmolality,Calculated 292 (280-300); Phosphorous 3.1 mg/dL (2.7-4.5); Potassium 3.7 mEq/L (3.5-5.1); Sodium 138 mEq/L (136-145); Total Protein 5.6 g/dL (6.4-8.9); eGFR For African Americans > 60 (> 60); eGFR For Non-African Americans > 60 (> 60)
[2021-09-19 04:08] LABS: ABG Base Excess 6 mEq/L (-2 to 3); ABG HCO3 30 mEq/L (21-27); ABG Oxygen Saturation 91 % (95-98); ABG PCO2 42 mmHg (35-45); ABG PH 7.47 pH Units (7.32-7.45); ABG PO2 57 mmHg (85-104); ABG TCO2 32 mEq/L (20-26); Blood Gas Modality ASSIST CONTROL; Blood Gas VT 500 cc
[2021-09-19] MEDS ORDERED: 0.9 % Sodium Chloride 250 ML IVC SCH (04:45)
[2021-09-19] MEDS: *HR* Heparin 5,000 UNIT/ML VIAL SQ SCH ×2 (04:48→20:24)
[2021-09-19] MEDS: *HR* Midazolam HCl 2 MG/2 ML VIAL IVP PRN (04:49)
[2021-09-19] MEDS: Potassium Chloride 40 MEQ/200 ML BAG IVPB PRN ×2 (05:31→06:24)
[2021-09-19] MEDS: FentaNYL (PF) 2,500 MCG/50 ML IV.SOLN IVC SCH ×3 (05:45→21:16)
[2021-09-19] MEDS: Albumin 25% 12.5gm/50mL 12.5 GM/50 ML IV.SOLN IVPB SCH (06:48)
[2021-09-19] MEDS: Chlorhexidine Rinse 15 ML MOUTHWASH MM SCH ×2 (07:34→20:26)
[2021-09-19] MEDS: Micafungin 100 MG in 0.9 % Sodium Chloride Mini Bag 100 ML IVPB SCH (07:36)
[2021-09-19] MEDS: Pantoprazole 40 MG VIAL IVP SCH (07:36)
[2021-09-19] MEDS: Furosemide 20 MG/2 ML VIAL IVP SCH ×2 (07:36→20:26)
[2021-09-19] MEDS: Phenylephrine 20 MG in 0.9 % Sodium Chloride 250 ML IVC SCH (07:39)
[2021-09-19] MEDS: Vancomycin 2,000 MG/520 ML IV.SOLN IVPB SCH ×2 (08:11→20:50)
[2021-09-19] MEDS: Octreotide 400 MCG in 0.9 % Sodium Chloride 100 ML IVC SCH ×2 (09:02→16:35)
[2021-09-19] MEDS ORDERED: Acetaminophen IV 1,000 MG/100 ML BAG IVPB ONE ×2 (09:31→16:24)
[2021-09-19] MEDS ORDERED: [UNRECOGNIZED DRUG - NUTRITION] IVC SCH (17:00)
[2021-09-19] MEDS: Midazolam HCl 50 MG/50 ML IV.SOLN IVC SCH (23:49)
[2021-09-20] MEDS: *HR* Midazolam HCl 2 MG/2 ML VIAL IVP PRN ×3 (00:21→16:17)
[2021-09-20] MEDS: Octreotide 400 MCG in 0.9 % Sodium Chloride 100 ML IVC SCH ×2 (01:12→10:47)
[2021-09-20] MEDS: 0.9 % Sodium Chloride 1,000 ML IVC SCH (01:27)
[2021-09-20] MEDS: Cisatracurium 200 MG in 0.9 % Sodium Chloride 80 ML IVC SCH (01:27)
[2021-09-20] MEDS: Artificial Tears SOLN 15 ML BOTTLE BOTH EYES SCH ×3 (03:36→10:48)
[2021-09-20] MEDS: Insulin LISPRO 300 UNITS/3 ML VIAL SUBQ SCH ×3 (03:36→13:00)
[2021-09-20 03:58] LABS: VBG Ionized Calcium 1.07 mmol/L (1.15-1.35)
[2021-09-20 04:02] LABS: Basophils # 0.1 K/mcL (0.0-0.2); Basophils % 0.7 %; Eosinophils # 0.4 K/mcL (0.0-0.6); Eosinophils % 4.2 %; Hematocrit 25.3 % (37.5-50.1); Lymphocytes % 11.7 %; Mean Corpuscular HGB Conc 31.6 g/dL (31.6-35.5); Mean Corpuscular Hemoglobin 30.1 pg (28.0-33.3); Mean Corpuscular Volume 95.1 fL (83.0-100.0); Mean Platelet Volume 10.1 fL (9.4-12.4); Monocytes % 9.8 %; Neutrophils # 6.6 K/mcL (1.6-8.9); Nucleated Red Blood Cells 0.6 /100 WBC (0); Platelet Count 633 K/mcL (140-400); Red Blood Count 2.66 M/mcL (4.19-5.50); Red Cell Distribution Width 15.5 % (11.5-14.5); Segmented Neutrophils % 67.6 %; White Blood Count 9.8 K/mcL (4.3-11.1)
[2021-09-20 04:06] LABS: Lymphocytes # 1.2 K/mcL (0.6-4.6)
[2021-09-20 04:14] LABS: Alanine Aminotransferase 24 Units/L (7-52); Albumin 2.6 g/dL (3.5-5.7); Alkaline Phosphatase 152 Units/L (34-104); Aspartate Amino Transferase 23 Units/L (13-39); BUN/Creatinine Ratio 44 (6-26); Bilirubin,Total 1.2 mg/dL (0.3-1.0); Blood Urea Nitrogen 29 mg/dL (6-20); Carbon Dioxide 30 mEq/L (23-29); Chloride 103 mEq/L (98-107); Globulin 2.7 g/dL (2.4-3.5); Glucose 127 mg/dL (70-105); Magnesium 1.8 mg/dL (1.6-2.6); Osmolality,Calculated 293 (280-300); Phosphorous 2.8 mg/dL (2.7-4.5); Potassium 3.5 mEq/L (3.5-5.1); Sodium 138 mEq/L (136-145); Total Protein 5.3 g/dL (6.4-8.9); eGFR For African Americans > 60 (> 60); eGFR For Non-African Americans > 60 (> 60)
[2021-09-20 04:39] LABS: ABG Base Excess 7 mEq/L (-2 to 3); ABG HCO3 30 mEq/L (21-27); ABG Oxygen Saturation 94 % (95-98); ABG PCO2 36 mmHg (35-45); ABG PH 7.53 pH Units (7.32-7.45); ABG PO2 61 mmHg (85-104); ABG TCO2 31 mEq/L (20-26); Blood Gas Modality AF; Blood Gas VT 500 cc
[2021-09-20 04:51] LABS: Hypochromasia Present (Not Present); Large Platelets Present (Not Present); Platelet Estimate Increased (Normal); Polychromasia 1+ (Not Present)
[2021-09-20] MEDS ORDERED: Potassium Phosphate 44 MEQ in 0.9 % Sodium Chloride 250 ML IVPB PRN (05:28)
[2021-09-20] MEDS: Calcium Gluconate 1gm/50mL 1 GM/50 ML BAG IVPB PRN (05:30)
[2021-09-20] MEDS: *HR* Heparin 5,000 UNIT/ML VIAL SQ SCH (05:32)
[2021-09-20] MEDS: Micafungin 100 MG in 0.9 % Sodium Chloride Mini Bag 100 ML IVPB SCH (07:43)
[2021-09-20] MEDS: Furosemide 20 MG/2 ML VIAL IVP SCH (07:44)
[2021-09-20] MEDS: Pantoprazole 40 MG VIAL IVP SCH (07:44)
[2021-09-20] MEDS: Chlorhexidine Rinse 15 ML MOUTHWASH MM SCH (07:44)
[2021-09-20] MEDS: FentaNYL (PF) 2,500 MCG/50 ML IV.SOLN IVC SCH ×2 (07:44→16:17)
[2021-09-20] MEDS: Phenylephrine 20 MG in 0.9 % Sodium Chloride 250 ML IVC SCH (09:42)
[2021-09-20] MEDS ORDERED: Vancomycin 1,750 MG/517.5 ML IV.SOLN IVPB SCH (10:00)
[2021-09-20] MEDS ORDERED: acetaZOLAMIDE 250 MG in Water for inj. (sterile) 2.5 ML IVP ONE (11:59)
[2021-09-20 15:50] VITALS: TEMP 99.8
[2021-09-20 15:55] VITALS: BP 112/54; PULSE 97
[2021-09-20 15:59] VITALS: O2SAT 94
[2021-09-20] MEDS ORDERED: [UNRECOGNIZED DRUG - NUTRITION] IVC SCH (17:00)
[2021-09-21] MEDS ORDERED: [UNRECOGNIZED DRUG - NUTRITION] IVC SCH (17:00)
== END 2021-09-20 17:23 | disposition short-term general hospital (02) | DRG 326 ==
LOC: SAMDAY 13:05 → 3ANU 19:39 → ICNU 09-08 22:31
PROVIDERS: ADMIT Surgery; ATTEND Surgery
PROC: IRDRAIN (2021-09-06 09:00)